=== PATIENT | female | born 1950 | race Caucasian/White ===

== ENCOUNTER 2016-11-30 09:31 | Day surgery (SDC) | payer MEDICARE, OTHER ==
[~2016-11-30 09:31] MED LIST: Bupivacaine 0.25%/EPINEPHrine 1:200,000 10 ML SDV ONE; Dexamethasone/Tobramycin 0.1-0.3% Ophth Oint 3.5 GM Tube ONE; Lactated Ringers 1,000 ML IV SCH
[2016-11-30] MEDS ORDERED: Bupivacaine 0.25%/EPINEPHrine 1:200,000 10 ML SDV INJECT ONE (10:00)
[2016-11-30] MEDS ORDERED: ceFAZolin 2 GM in Premix Bag 1 BAG IV ONE (10:00)
[2016-11-30] MEDS ORDERED: Acetaminophen/HYDROcodone 325-5 MG Tab PO PRN (10:00)
--- NOTE | 2016-11-30 10:33 | PCM.PREANE ---
Preanesthetic Assessment - Anesthesia/Transfusion/Family Hx Anesthesia History: Prior Anesthesia Without Reaction Family History of Anesthesia Reaction: No Transfusion History: No Prior Transfusion(s) - Review of Systems General: No Symptoms Pulmonary: No Symptoms Cardiovascular: No Symptoms Gastrointestinal: No symptoms Neurological: No Symptoms Other: Reports: None - Physical Assessment NPO Status Date: 11/29/16 O2 Sat by Pulse Oximetry: 97 Respiratory Rate: 16 Vital Signs: Last Vital Signs Temp Pulse 60 11/30/16 10:10 Resp 16 11/30/16 10:10 BP 126/60 11/30/16 10:10 Pulse Ox 97 11/30/16 10:10 Height: 1.65 m Weight: 75.296 kg ASA Class: 2 Mental Status: Alert & Oriented x3 Airway Class: Mallampati = 1 Dentition: Reports: Normal Dentition ROM/Head Extension: Full Lungs: Clear to auscultation, Normal respiratory effort Cardiovascular: Regular Rate, Regular Rhythm - Allergies Allergies/Adverse Reactions: Allergies Allergy/AdvReac Type Severity Reaction Status Date / Time No Known Allergies Allergy Verified 11/27/16 08:22 - Acknowledgements Anesthesia Type Planned: MAC Pt an Appropriate Candidate for the Planned Anesthesia: Yes Alternatives and Risks of Anesthesia Discussed w Pt/Guardian: Yes Pt/Guardian Understands and Agrees with Anesthesia Plan: Yes PreAnesthesia Questionnaire HEENT History: Reports: Retinal Detachment Other HEENT History: hx laser for detached retina, wears glasses Cardiovascular History: Reports: High Cholesterol Gastrointestinal History: Reports: None - Past Surgical History Head Surgeries/Procedures: Reports: None GI Surgical History: Reports: Colonoscopy - SUBSTANCE USE Smoking Status *Q: Former Smoker Tobacco Use Within Last Twelve Months: No Recreational Drug Use History: No - HOME MEDS Home Medications: Home Meds Fish Oil/[place]-3 Fatty Acids [Fish Oil 1,000 MG] 1 tab PO DAILY 11/27/16 [ History] Simvastatin [Zocor] 40 mg PO DAILY 11/27/16 [History] Venlafaxine HCl [Venlafaxine HCl ER] 150 mg PO DAILY 11/27/16 [History] cycloSPORINE [Restasis] 1 drop EYEBOTH ASDIRECTED 11/27/16 [History] - CURRENT (IN HOUSE) MEDS Current Meds: Current Medications Hydrocodone Bitart/Acetaminophen ([place] 325-5 Mg) 1 tab PO Q4H PRN PRN Reason: Pain Lactated Ringer's (Ringers, Lactated) 1,000 mls @ 125 mls/hr IV ASDIRECTED MIRELA Last Admin: 11/30/16 10:31 Dose: 125 mls/hr Tobramycin/Dexamethasone (Tobradex Ophth Oint) 1 gm EYEBOTH ONETIME ONE Stop: 11/30/16 11:01 Discontinued Medications Bupivacaine HCl/Epinephrine Bitart ([place] 0.25%/Epinephrine 1:200,000) 10 ml INJECT ONETIME ONE Stop: 11/30/16 10:01 Bupivacaine HCl/Epinephrine Bitart ([place] 0.25%/Epinephrine 1:200,000) Confirm Administered Dose 10 ml .ROUTE .STK-MED ONE Stop: 11/30/16 09:27 Cefazolin Sodium/Dextrose 2 gm (/ Premix) 50 mls @ 100 mls/hr IV ONETIME ONE Stop: 11/30/16 10:29 Tobramycin/Dexamethasone (Tobradex Ophth Oint) Confirm Administered Dose 3.5 gm .ROUTE .STK-MED ONE Stop: 11/30/16 09:27
[2016-11-30] MEDS ORDERED: Dexamethasone/Tobramycin 0.1-0.3% Ophth Oint 3.5 GM Tube EYEBOTH ONE (11:00)
[2016-11-30] MEDS ORDERED: Propofol 200 MG/20 ML SDV ONE (12:46)
[2016-11-30] MEDS ORDERED: Lidocaine 2% 5 ML SDV ONE (12:46)
[2016-11-30] MEDS ORDERED: fentaNYL 100 MCG/2 ML SDV ONE (12:46)
[2016-11-30] MEDS ORDERED: Midazolam 1 MG/ML 2 ML SDV ONE (12:46)
[2016-11-30] MEDS ORDERED: Ondansetron 4 MG/2 ML SDV ONE (12:47)
[2016-11-30] MEDS ORDERED: Lidocaine 1% with EPINEPHrine 1:100,000 20 ML MDV ONE (13:35)
[2016-11-30] MEDS ORDERED: Bupivacaine 0.25%/EPINEPHrine 1:200,000 10 ML SDV ONE (13:35)
--- NOTE | 2016-11-30 14:25 | PCM.POSTAN ---
POST ANESTHESIA ASSESSMENT - MENTAL STATUS Mental Status: alert, oriented - RESPIRATORY Respiratory Status: respiratory rate WNL, airway patent, O2 saturation stable - CARDIOVASCULAR CV Status: pulse rate WNL, blood pressure stable - GASTROINTESTINAL GI Status: no symptoms - POST OP HYDRATION Hydration Status: adequate & stable
--- NOTE | 2016-11-30 15:27 | PCM48HPAN ---
Post Anesthesia Note - EVALUATION WITHIN 48HRS OF ANESTHETIC Vital Signs in Normal Range: Yes Patient Participated in Evaluation: Yes Respiratory Function Stable: Yes Airway Patent: Yes Cardiovascular Function Stable: Yes Hydration Status Stable: Yes Pain Control Satisfactory: Yes Nausea and Vomiting Control Satisfactory: Yes Mental Status Recovered: Yes
[2016-11-30 16:26] VITALS: BP 123/56
--- NOTE | 2016-12-01 10:37 | PCM.OPNOTE ---
- General Post-Op/Procedure Note Date of Surgery/Procedure: 11/30/16 Operative Procedure(s): bilatearl upper lid blepharoplasty for excess skin weighing down lids Pre Op Diagnosis: dermatochalasis with visual obstruction Post-Op Diagnosis: Same Anesthesia Technique: Local, MAC Primary Surgeon: Shannon Martinez Corporate Secretary: Jewell Wharton Complications: None Condition: Good
--- NOTE | 2016-12-01 11:11 | OR ---
SURGEON: JAMIE ODELL MD DATE OF PROCEDURE: 11/30/2016 PREOPERATIVE DIAGNOSIS: Dermatochalasis with visual obstruction. POSTOPERATIVE DIAGNOSIS: Dermatochalasis with visual obstruction. PROCEDURE: Bilateral upper lid blepharoplasty for excess skin weighing down lids. CLINICAL PHARMACY COORDINATOR: DALIA Vieira INDICATIONS: Ms. Escudero is a 65-year-old female with visual field exams demonstrating visual obstruction and an MRD of less than 2 bilaterally. Risks and benefits of upper lid blepharoplasty were discussed with her and she was in agreement to proceed. Risks were including, but not limited to, bleeding, infection, damage to underlying or overlying structures, possible need for future interventions and possible scarring. PROCEDURE IN DETAIL: After informed consent was obtained and placed on the chart, the patient was brought to the operating theater and laid in supine position. After adequate local MAC anesthetic was obtained, the area was prepped and draped in normal fashion and a time-out was completed to confirm side and site. The area was prepped and local anesthesia was infiltrated. The area had been marked for excess skin with pinch test and measurements prior to injection. The previously marked area for excision was incised using a 15 blade and dissection was carried down just superior to the muscle layer. The skin was removed using a 15 blade and Bovie electrocautery for meticulous hemostasis. She was quite swollen that the skin was easily closed without tension. Gentle closure of the eye was noted without any exposure of the underlying eyeball in gentle rest. The skin was then closed with 4-0 Monocryl stitches for first deep dermal and a running 6-0 Prolene for the skin. The ends of the 6-0 Prolene were Steri-Strips in place. The incision line was dressed with TobraDex ointment. She tolerated this well and all counts and needles were correct at the end of the case. FOLLOWUP INSTRUCTIONS: The patient will see us in one week for suture removal or sooner if any problems, questions, or concerns. HEGGTDANIEL / PHYLLIS /[id number]
== END 2016-11-30 16:00 | disposition home or self-care (01) ==
LOC: MW.SDS 09:31
PROVIDERS: ATTEND Plastic Surgery
PROC: 080PXZZ Alteration of Left Upper Eyelid, External Approach (ICD-10-PCS; principal; 2016-11-30)
PROC: 080NXZZ Alteration of Right Upper Eyelid, External Approach (ICD-10-PCS; 2016-11-30)
DX: H02.831 Dermatochalasis of right upper eyelid (principal); H02.834 Dermatochalasis of left upper eyelid; E78.00 Pure hypercholesterolemia, unspecified; Z87.891 Personal history of nicotine dependence; Z98.890 Other specified postprocedural states; Z79.899 Other long term (current) drug therapy
CPT/HCPCS: 15823; A9270; J2250; J2405; J3010; J7120; 00103; J2704

== ENCOUNTER 2017-03-14 09:01 | Emergency (ER) | payer MEDICARE, OTHER ==
--- NOTE | 2017-03-14 09:20 | EDM.PDOC ---
ED HPI GENERAL MEDICAL PROBLEM - General Chief Complaint: Lower Extremity Injury/Pain Stated Complaint: RIGHT KNEE PAIN FROM FALL Time Seen by Provider: 03/14/17 09:20 Source of Information: Reports: Patient - History of Present Illness INITIAL COMMENTS - FREE TEXT/NARRATIVE: HISTORY AND PHYSICAL: History of present illness: []Patient presents with right knee pain that began last night, it is painful with weightbearing, she slipped twisting her knee since she has been having pain with weightbearing at rest there is no pain 0 out of 10 with weightbearing she rates 5 out of 10 nonradiating denies any other injury head injury or loss of consciousness No fever nausea vomiting chills sweats no chest pain shortness breath headache dizziness palpitation about a urine symptoms Review of systems: As per history of present illness and below otherwise all systems reviewed and negative. Past medical history: As per history of present illness and as reviewed below otherwise noncontributory. Surgical history: As per history of present illness and as reviewed below otherwise noncontributory. Social history: No reported history of drug or alcohol abuse. Family history: As per history of present illness and as reviewed below otherwise noncontributory. Physical exam: HEENT: Atraumatic, normocephalic, pupils reactive, negative for conjunctival pallor or scleral icterus, mucous membranes moist, throat clear, neck supple, nontender, trachea midline. Lungs: Clear to auscultation, breath sounds equal bilaterally, chest nontender. Heart: S1S2, regular, negative for clicks, rubs, or JVD. Abdomen: Soft, nondistended, nontender. Negative for masses or hepatosplenomegaly. Negative for costovertebral tenderness. Pelvis: Stable nontender. Genitourinary: Deferred. Rectal: Deferred. Extremities: Atraumatic, negative for cords or calf pain. Neurovascular unremarkable. Neuro: Awake, alert, oriented. Cranial nerves II through XII unremarkable. Cerebellum unremarkable. Motor and sensory unremarkable throughout. Exam nonfocal. Right knee hip and ankle and affected knee is slightly swollen there is medial joint line tenderness tendon and ligament structures appear intact however is somewhat limited exam due to pain entire limb is neurovascularly intact Diagnostics: []Right knee 3 views Therapeutics: []Immobilizer crutches nonweightbearing Rest ice ibuprofen Follow-up with orthopedist Impression: []Right knee pain Slight joint effusion on x-ray Definitive disposition and diagnosis as appropriate pending reevaluation and review of above. Right Knee Pain Score (Numeric/FACES): 3 - Related Data Allergies Allergy/AdvReac Type Severity Reaction Status Date / Time No Known Allergies Allergy Verified 03/14/17 09:16 Home Meds: Home Meds Fish Oil/[place]-3 Fatty Acids [Fish Oil 1,000 MG] 1 tab PO DAILY 11/27/16 [ History] Simvastatin [Zocor] 40 mg PO DAILY 11/27/16 [History] Venlafaxine HCl [Venlafaxine HCl ER] 150 mg PO DAILY 11/27/16 [History] cycloSPORINE [Restasis] 1 drop EYEBOTH ASDIRECTED 11/27/16 [History] Acetaminophen/HYDROcodone [[place] 325-5 MG] 1 tab PO Q4H PRN #30 tablet 11/30/16 [Rx] Past Medical History HEENT History: Reports: Retinal Detachment Other HEENT History: hx laser for detached retina, wears glasses Cardiovascular History: Reports: High Cholesterol Gastrointestinal History: Reports: None - Past Surgical History Head Surgeries/Procedures: Reports: None GI Surgical History: Reports: Colonoscopy Social & Family History - Tobacco Use Smoking Status *Q: Former Smoker Month Tobacco Last Used: quit smoking 30 yrs ago - Recreational Drug Use Recreational Drug Use: No Review of Systems - Review of Systems Review Of Systems: ROS reveals no pertinent complaints other than HPI. ED EXAM, GENERAL - Physical Exam Exam: See Below Course - Vital Signs Last Recorded V/S: Last Vital Signs Temp 36.8 C 03/14/17 09:17 Pulse 97 03/14/17 09:17 Resp 18 03/14/17 09:17 BP 123/87 03/14/17 09:17 Pulse Ox 97 03/14/17 09:17 Departure - Departure Time of Disposition: 10:26 Disposition: Home, Self-Care 01 Condition: Good Clinical Impression: Right knee pain - Discharge Information Referrals: Italia Walsh NP [Primary Care Provider] - Forms: ED Department Discharge Additional Instructions: Rest Ice 20 minute intervals 3 times daily as needed Ibuprofen 400 mg 3 times daily 7-10 days Immobilizer crutches nonweightbearing Call orthopedist to schedule appropriate follow-up with number below [facility] Professional Building [address] [place] [address], [address] [place] [phone] my orthopedic The following information is given to patients seen in the emergency department who are being discharged to home. This information is to outline your options for follow-up care. We provide all patients seen in our emergency department with a follow-up referral. The need for follow-up, as well as the timing and circumstances, are variable depending upon the specifics of your emergency department visit. If you don't have a primary care physician on staff, we will provide you with a referral. We always advise you to contact your personal physician following an emergency department visit to inform them of the circumstance of the visit and for follow-up with them and/or the need for any referrals to a consulting specialist. The emergency department will also refer you to a specialist when appropriate. This referral assures that you have the opportunity for follow-up care with a specialist. All of these measure are taken in an effort to provide you with optimal care, which includes your follow-up. Under all circumstances we always encourage you to contact your private physician who remains a resource for coordinating your care. When calling for follow-up care, please make the office aware that this follow-up is from your recent emergency room visit. If for any reason you are refused follow-up, please contact the [facility] emergency department at and asked to speak to the emergency department charge nurse.
--- NOTE | 2017-03-14 10:06 | CR ---
EXAMINATION: Right knee HISTORY: Pain COMPARISON: 11/28/2012 TECHNIQUE: 3 views FINDINGS: There is no acute osseous abnormality, dislocation, or fracture. There is moderate joint sp brandy narrowing within the medial compartment. Moderate osteophyte formation is noted at all 3 compartm ents. There is a trace suprapatellar joint effusion. IMPRESSION: 1. Degenerative changes and a trace joint effusion without an acute osseous abnormality.
[2017-03-14 11:08] VITALS: BP 136/63
== END 2017-03-14 11:00 | disposition home or self-care (01) ==
LOC: MW.ED 09:01
DX: M25.561 Pain in right knee (principal); E78.00 Pure hypercholesterolemia, unspecified; Z79.899 Other long term (current) drug therapy; Z87.891 Personal history of nicotine dependence
CPT/HCPCS: 73562-26-RT; 73562-RT; 99282; 99283

== ENCOUNTER 2017-09-25 06:20 | Day surgery (SDC) | payer MEDICARE, OTHER ==
[~2017-09-25 06:20] MED LIST changes: -Bupivacaine 0.25%/EPINEPHrine 1:200,000 10 ML SDV ONE; -Dexamethasone/Tobramycin 0.1-0.3% Ophth Oint 3.5 GM Tube ONE
[2017-09-25] MEDS ORDERED: fentaNYL 100 MCG/2 ML SDV ONE (07:08)
[2017-09-25] MEDS ORDERED: Propofol 200 MG/20 ML SDV ONE (07:08)
[2017-09-25] MEDS ORDERED: Midazolam 1 MG/ML 2 ML SDV ONE (07:08)
[2017-09-25] MEDS ORDERED: Ondansetron 4 MG/2 ML SDV ONE (07:10)
[2017-09-25] MEDS ORDERED: Glycopyrrolate 0.2 MG/ML SDV ONE ×2 (07:10→10:15)
[2017-09-25] MEDS ORDERED: Ketorolac 30 MG/ML SDV ONE (07:10)
--- NOTE | 2017-09-25 07:15 | PCM.PREANE ---
Preanesthetic Assessment - Anesthesia/Transfusion/Family Hx Anesthesia History: Prior Anesthesia Without Reaction Family History of Anesthesia Reaction: No Transfusion History: No Prior Transfusion(s) - Review of Systems General: No Symptoms Pulmonary: No Symptoms Cardiovascular: No Symptoms Gastrointestinal: No Symptoms Neurological: No Symptoms Other: Reports: None - Physical Assessment NPO Status Date: 09/24/17 NPO Status Time: 20:00 O2 Sat by Pulse Oximetry: 96 Respiratory Rate: 16 Vital Signs: Last Vital Signs Temp 37.2 C 09/25/17 06:40 Pulse 67 09/25/17 06:40 Resp 16 09/25/17 06:40 BP 122/59 L 09/25/17 06:40 Pulse Ox 96 09/25/17 06:40 Height: 1.73 m Weight: 74.843 kg ASA Class: 2 Mental Status: Alert & Oriented x3 Airway Class: Mallampati = 2 Dentition: Reports: Normal Dentition ROM/Head Extension: Full Lungs: Clear to Auscultation, Normal Respiratory Effort Cardiovascular: Regular Rate, Regular Rhythm - Allergies Allergies/Adverse Reactions: Allergies Allergy/AdvReac Type Severity Reaction Status Date / Time nickel Allergy Rash Verified 09/23/17 09:48 - Acknowledgements Anesthesia Type Planned: General Anesthesia Pt an Appropriate Candidate for the Planned Anesthesia: Yes Alternatives and Risks of Anesthesia Discussed w Pt/Guardian: Yes Pt/Guardian Understands and Agrees with Anesthesia Plan: Yes Additional Comments: consent obtained for ISB PreAnesthesia Questionnaire HEENT History: Reports: Retinal Detachment Other HEENT History: hx laser for detached retina, wears glasses Cardiovascular History: Reports: High Cholesterol Respiratory History: Reports: None Gastrointestinal History: Reports: None Genitourinary History: Reports: None [employer] History: Reports: None Musculoskeletal History: Reports: None Neurological History: Reports: None Psychiatric History: Reports: None Endocrine/Metabolic History: Reports: None Hematologic History: Reports: None Immunologic History: Reports: None Oncologic (Cancer) History: Reports: Basal Cell Carcinoma Dermatologic History: Reports: None - Infectious Disease History Infectious Disease History: Reports: Chicken Pox, Measles - Past Surgical History Head Surgeries/Procedures: Reports: None HEENT Surgical History: Reports: Tonsillectomy Respiratory Surgical History: Reports: None GI Surgical History: Reports: Colonoscopy Female Surgical History: Reports: None Endocrine Surgical History: Reports: None Neurological Surgical History: Reports: None Musculoskeletal Surgical History: Reports: None Oncologic Surgical History: Reports: None Dermatological Surgical History: Reports: Skin Biopsy - SUBSTANCE USE Smoking Status *Q: Former Smoker Tobacco Use Within Last Twelve Months: No Recreational Drug Use History: No - HOME MEDS Home Medications: Home Meds Simvastatin [Zocor] 40 mg PO DAILY 11/27/16 [History] Venlafaxine HCl [Venlafaxine HCl ER] 150 mg PO DAILY 11/27/16 [History] cycloSPORINE [Restasis] 1 drop EYEBOTH ASDIRECTED 11/27/16 [History] Cranberry 1 tab PO ASDIRECTED 09/23/17 [History] Multivitamin [Multivitamins] 1 tab PO DAILY 09/23/17 [History] Turmeric Root Extract [Turmeric] 1 tab PO ASDIRECTED 09/23/17 [History] - CURRENT (IN HOUSE) MEDS Current Meds: Current Medications Hydrocodone Bitart/Acetaminophen ([place] 325-10 Mg) 1 - 2 tab PO Q4H PRN PRN Reason: Pain Cefazolin Sodium/Dextrose 2 gm (/ Premix) 50 mls @ 100 mls/hr IV ONCALL MIRELA Lactated Ringer's (Ringers, Lactated) 1,000 mls @ 100 mls/hr IV ASDIRECTED [facility] Ketorolac Tromethamine (Toradol) 10 mg PO Q6H PRN PRN Reason: Pain Stop: 09/30/17 08:01
[2017-09-25] MEDS ORDERED: Ropivacaine 0.5% 5 MG/ML 30 ML SDV ONE (07:25)
[2017-09-25] MEDS ORDERED: Bupivacaine 0.5% 30 ML SDV ONE (07:30)
[2017-09-25] MEDS ORDERED: Dexamethasone 4 MG/ML 5 ML MDV ONE (07:43)
[2017-09-25] MEDS ORDERED: ceFAZolin 2 GM in Premix Bag 1 BAG IV SCH (08:00)
[2017-09-25] MEDS ORDERED: Ketorolac 10 MG Tab PO PRN (08:00)
[2017-09-25] MEDS ORDERED: Acetaminophen/HYDROcodone 325-10 MG Tab PO PRN (08:00)
[2017-09-25] MEDS ORDERED: Sugammadex Sodium 200 MG/2 ML VIAL ONE (08:38)
[2017-09-25] MEDS ORDERED: Rocuronium 10 MG/ML 10 ML Syringe ONE (08:40)
[2017-09-25] MEDS ORDERED: Phenylephrine/Normal Saline 100 MCG/ML 10 ML Syringe ONE ×2 (09:18→10:13)
--- NOTE | 2017-09-25 09:38 | PCM.PRNOTE ---
- Free Text/Narrative Note: Anes Note L ISB for Post Op Pain Management Risks and methods were discussed with this patient. Steril technique. Chloroprop prep which was allowed to dry for 3 minutes. L IS groove identified. LOcal 1 cc 15 lido Needle" 22 X 2 Stimuplex A needle. Slowly advanced using nerve stimulator. Excellent biceps twich noted, which was present down to 0.6 mA. Neg aspiration of blood. 8 mg decadon and 30 cc 0.5% bupivicaine slowly injected. Excellent analgesia noted after injection. Sedation was 2 mg versed, and 100 mcg fentanyl. EKG and pulse ox and ekg monitors used for this procedure. Patient tolerated procedure very well. Time with patient: [id number] Bashir Aguilar CRNA
[2017-09-25] MEDS ORDERED: EPINEPHrine 1 MG/ML SDV ONE (09:48)
[2017-09-25] MEDS ORDERED: fentaNYL 100 MCG/2 ML SDV IVPUSH PRN (10:50)
[2017-09-25] MEDS ORDERED: Ondansetron 4 MG/2 ML SDV IVPUSH ONE (10:50)
--- NOTE | 2017-09-25 10:57 | PCM.OPNOTE ---
- General Post-Op/Procedure Note Date of Surgery/Procedure: 09/25/17 Operative Procedure(s): L shoulder arthroscopy with SAD, extensive debridement, and RTCR Post-Op Diagnosis: Left shoulder impingement, biceps tendonitis, and RTCT Anesthesia Technique: General ET Tube, Regional Block Primary Surgeon: Magdaelne Chavarria Roof Slater: Lazara Edwards Condition: Good Free Text/Narrative:: #[id number]
--- NOTE | 2017-09-25 11:24 | PCM.POSTAN ---
POST ANESTHESIA ASSESSMENT - MENTAL STATUS Mental Status: Alert, Oriented - RESPIRATORY Respiratory Status: Respiratory Rate WNL, Airway Patent, O2 Saturation Stable - CARDIOVASCULAR CV Status: Pulse Rate WNL, Blood Pressure Stable - GASTROINTESTINAL GI Status: No Symptoms - POST OP HYDRATION Hydration Status: Adequate & Stable
[2017-09-25 13:09] VITALS: BP 137/65
--- NOTE | 2017-09-25 17:03 | OR ---
SURGEON: Magdalene Chavarria MD DATE OF PROCEDURE: 09/25/2017 PREOPERATIVE DIAGNOSES: 1. Left shoulder impingement syndrome. 2. Left shoulder biceps tendinopathy. 3. Left shoulder partial rotator cuff tear. POSTOPERATIVE DIAGNOSES: 1. Left shoulder impingement syndrome. 2. Left shoulder biceps tendinopathy. 3. Left shoulder partial rotator cuff tear. 4. Degenerative anterior labral tear. PROCEDURES: Left shoulder arthroscopy with: 1. Subacromial decompression with release of coracoacromial ligament and acromioplasty. 2. Extensive debridement including biceps tenotomy and debridement of the anterior labrum. 3. Arthroscopic rotator cuff repair. AED TRAINER: Lazara Edwards PA-C ANESTHESIA: General with interscalene block. ESTIMATED BLOOD LOSS: 10 mL. TOURNIQUET TIME: Zero minutes. COMPLICATIONS: None. DVT PROPHYLAXIS: PAS boot to bilateral lower extremities. IMPLANTS USED: One 2.9 mm JuggerKnot anchor and one 4.5 mm Quattro Link lateral row. BRIEF HISTORY: Evelyn is a 66-year-old female who has had complaint of progressive left shoulder pain. She had failed conservative treatment. Due to her lack of response to conservative treatment, I did recommend surgical intervention. The risks and goals of procedure were discussed with the patient and were documented preoperatively. She agreed to proceed. DESCRIPTION OF PROCEDURE: The patient was properly identified and brought to the operating room. She was transferred from the OR cart and placed on the operating table in supine position. General anesthesia was administered. After adequate anesthesia was obtained, the patient was placed into a beach-chair type position. Care was made to pad all bony prominences. Her head was secured. An interscalene block had been administered preoperatively. The left upper extremity was then prepped in standard fashion using ChloraPrep solution. It was then sterilely draped. A time-out was performed to ensure correct site and procedure. Preoperative antibiotics were given. The surgical site was not signed, but had been given an interscalene block and discussed with the patient preoperatively. The left upper extremity was then sterilely draped. A marking pen was used to identify the bony landmarks. Approximately 30 mL of normal saline were introduced into the glenohumeral joint. A posterior portal was established. Blunt trocar and cannula were introduced into the glenohumeral joint. Camera, inflow, and outflow were assembled. The rotator interval showed no significant synovitis. An anterior portal was established. The subscapularis was visualized. There was a small superficial fraying of the subscapularis near its insertion onto the humeral head. This was inspected and found that the majority of this was intact. I then inspected the subscapular recess. No loose bodies were identified. The biceps was then inspected. She had significant amount of synovitis present on the biceps tendon. Its insertion onto the glenoid also showed some peel back. The biceps was brought into the joint and there was further synovitis along the distal portion of the tendon including some small longitudinal fissures. I elected to proceed with a biceps tenotomy. This was performed with electrocautery. The biceps tendon retracted easily into the biceps tendon sheath. Electrocautery was used to smooth its insertion point onto the glenoid. I then inspected the anterior labrum. She did have some degenerative fraying of this. This was resected with electrocautery to a stable remnant. The posterior labrum appeared intact. Both the glenoid and the humeral head were inspected and no significant degenerative changes were noted. The axillary pouch showed no loose bodies. The arm was then brought into an abducted and externally rotated position. The bare area was noted posteriorly. As I progressed forward, there was a nearly full-thickness tear of the anterior portion of the supraspinatus. Only a few small remaining fibers held the tendon in place. The arm was then brought back into a neutral position. Instruments were removed from the glenohumeral joint. I then entered the subacromial space. A lateral portal was established. A shaver was introduced. She did have extensive bursitis present in the subacromial space. This was resected with a combination of the shaver and electrocautery. The undersurface of the acromion was cleared of soft tissue and the coracoacromial ligament was released anteriorly. She had a type 2 acromion noted which did cause some impingement along the anterior portion. A 5.0 mm bur was used to perform an acromioplasty, which provided good decompression of the subacromial space. The remainder of the bursal tissue was resected. This allowed good visualization of the rotator cuff. The majority appeared to be intact. The anterior portion of the supraspinatus was probed. This was quite thin in the region of the previously noted nearly full-thickness tear from the articular side. Electrocautery was used to take down this portion of the cuff. The footprint was then roughened using the bur. A cuff grasper was used to reapproximate the cuff tear to the footprint and she had good mobility and integrity of the cuff tissue. A 2.9 mm JuggerKnot suture anchor was placed centrally in the defect, just lateral to the articular margin. Four sutures were then passed through the cuff tissue. These were tied in a [id number] fashion. This provided good reapproximation of the cuff tissue to the footprint. An additional lateral row was placed incorporating all of the sutures to provide additional compression of the rotator cuff to the footprint. The repair was then probed at the completion. The repair was found to be nearly watertight. It should be noted that a passport cannula was used to assist with suture management through the lateral portal. The instruments were then removed from the shoulder. A 3-0 nylon was used to close the portal sites. Xeroform gauze was placed over the wound and a bulky dressing was applied. She was awakened from her anesthetic and transferred back to the operating room cart. She was placed into a shoulder immobilizer. She was brought to recovery room in stable condition. All needle and sponge counts were correct. ESHA / PHYLLIS /[id number]
== END 2017-09-25 13:00 | disposition home or self-care (01) ==
LOC: MW.SDS 06:20
PROVIDERS: ATTEND Orthopaedic Surgery
DX: M75.102 Unspecified rotator cuff tear or rupture of left shoulder, not specified as traumatic (principal); M75.42 Impingement syndrome of left shoulder; M67.922 Unspecified disorder of synovium and tendon, left upper arm; Z79.899 Other long term (current) drug therapy; Z91.09 Other allergy status, other than to drugs and biological substances
CPT/HCPCS: 29823; 29826; 29827; 88304; J0171; J1100; J1885; J2250; J2405; J2795; J3010; J7120; 01630; 64415; C1713; J2704

== ENCOUNTER 2019-01-05 08:20 | Inpatient (IN) | payer MEDICARE, OTHER ==
[~2019-01-05 08:20] MED LIST changes: +Acetaminophen 1,000 MG in Premix Bag 1 BAG IV SCH; +Famotidine 20 MG/2 ML SDV IVPUSH SCH; +Ketorolac 15 MG/ML SDV IVPUSH SCH; -Lactated Ringers 1,000 ML IV SCH; +Ropivacaine 49.25 ML, Ketorolac 30 MG, EPINEPHrine 0.5 MG, cloNIDine 80 MCG in Sodium C... INJECT SCH; +Scopolamine 1.5 MG Transdermal Patch TRDERM SCH; +Tranexamic Acid 2,000 MG in Sodium Chloride 0.9% 100 ML IV ONE; +ceFAZolin 1 GM in Premix Bag 1 BAG IV SCH
[2019-01-05] MEDS ORDERED: Propofol 200 MG/20 ML SDV ONE (10:35)
[2019-01-05] MEDS ORDERED: Lidocaine 2% 5 ML SDV ONE (10:35)
[2019-01-05] MEDS ORDERED: fentaNYL 100 MCG/2 ML SDV ONE (10:36)
[2019-01-05] MEDS ORDERED: Midazolam 1 MG/ML 2 ML SDV ONE (10:36)
[2019-01-05] MEDS: Lactated Ringers 1,000 ML IV SCH (10:39)
--- NOTE | 2019-01-05 11:05 | PCM.PREANE ---
Preanesthetic Assessment - Anesthesia/Transfusion/Family Hx Anesthesia History: Prior Anesthesia Without Reaction Other Type of Anesthesia Reaction Comment: "I am a lightweight, I dont need much" Family History of Anesthesia Reaction: No Transfusion History: No Prior Transfusion(s) Intubation History: Unknown - Review of Systems General: No Symptoms Pulmonary: No Symptoms Cardiovascular: No Symptoms Gastrointestinal: No Symptoms Neurological: No Symptoms Other: Reports: None - Physical Assessment Height: 5 ft 8.5 in Weight: 74.843 kg ASA Class: 2 Mental Status: Alert & Oriented x3 Airway Class: Mallampati = 2 Dentition: Reports: Normal Dentition Thyro-Mental Finger Breadths: 2 Mouth Opening Finger Breadths: 2 ROM/Head Extension: Full Lungs: Clear to Auscultation, Normal Respiratory Effort Cardiovascular: Regular Rate, Regular Rhythm - Allergies Allergies/Adverse Reactions: Allergies Allergy/AdvReac Type Severity Reaction Status Date / Time nickel Allergy Rash Verified 01/01/19 07:40 - Blood Blood Available: No - Anesthesia Plan Pre-Op Medication Ordered: None - Acknowledgements Anesthesia Type Planned: Spinal (general anesthesia back-up plan) Pt an Appropriate Candidate for the Planned Anesthesia: Yes Alternatives and Risks of Anesthesia Discussed w Pt/Guardian: Yes Pt/Guardian Understands and Agrees with Anesthesia Plan: Yes PreAnesthesia Questionnaire HEENT History: Reports: Retinal Detachment Other HEENT History: hx laser for detached retina, wears glasses Cardiovascular History: Reports: High Cholesterol Respiratory History: Reports: None Gastrointestinal History: Reports: None Genitourinary History: Reports: None ATTENUATOR History: Reports: None Musculoskeletal History: Reports: None Neurological History: Reports: None Psychiatric History: Reports: Anxiety, Depression Endocrine/Metabolic History: Reports: Other (See Below) Other Endocrine/Metabolic History: pre diabetic Hematologic History: Reports: None Immunologic History: Reports: None Oncologic (Cancer) History: Reports: Basal Cell Carcinoma Dermatologic History: Reports: None - Infectious Disease History Infectious Disease History: Reports: Chicken Pox, Measles - Past Surgical History Head Surgeries/Procedures: Reports: None HEENT Surgical History: Reports: Tonsillectomy Cardiovascular Surgical History: Reports: None Respiratory Surgical History: Reports: None GI Surgical History: Reports: Colonoscopy Female Surgical History: Reports: None Endocrine Surgical History: Reports: None Neurological Surgical History: Reports: None Musculoskeletal Surgical History: Reports: Shoulder Surgery, Other (See Below) Other Musculoskeletal Surgeries/Procedures:: RTC repair (09/25/17) Oncologic Surgical History: Reports: None Dermatological Surgical History: - SUBSTANCE USE Smoking Status *Q: Former Smoker Recreational Drug Use History: No - HOME MEDS Home Medications: Home Meds Simvastatin [Zocor] 40 mg PO BEDTIME 11/27/16 [History] Venlafaxine HCl [Venlafaxine HCl ER] 150 mg PO DAILY 11/27/16 [History] cycloSPORINE [Restasis] 1 drop EYEBOTH BID 11/27/16 [History] Cranberry 1 tab PO ASDIRECTED 09/23/17 [History] Multivitamin [Multivitamins] 1 tab PO DAILY 09/23/17 [History] Turmeric Root Extract [Turmeric] 1 tab PO ASDIRECTED 09/23/17 [History] - CURRENT (IN HOUSE) MEDS Current Meds: Current Medications Famotidine (Pepcid) 40 mg IVPUSH ONARRIVE [facility] Last Admin: 01/05/19 10:39 Dose: 40 mg Acetaminophen 1,000 mg/ Premix 100 mls @ 400 mls/hr IV ONARRIVE [facility] Last Admin: 01/05/19 10:39 Dose: 400 mls/hr Ropivacaine 49.25 ml/Ketorolac Tromethamine 30 mg/Epinephrine HCl 0.5 mg/ Clonidine HCl 80 mcg/ Sodium Chloride 75 mls @ 50 mls/sec INJECT ASDIRECTED [facility] Lactated Ringer's (Ringers, Lactated) 1,000 mls @ 100 mls/hr IV ASDIRECTED [facility] Last Admin: 01/05/19 10:39 Dose: 100 mls/hr Cefazolin Sodium/Dextrose 1 gm (/ Premix) 50 mls @ 100 mls/hr IV ONCALL [facility] Ketorolac Tromethamine (Toradol) 15 mg IVPUSH ONARRIVE [facility] Last Admin: 01/05/19 10:40 Dose: 15 mg Scopolamine (Transderm-Scop) 1.5 mg TRDERM ONARRIVE [facility] Last Admin: 01/05/19 10:41 Dose: 1.5 mg Discontinued Medications Fentanyl (Sublimaze) Confirm Administered Dose 100 mcg .ROUTE .STK-MED ONE Stop: 01/05/19 10:37 Tranexamic Acid 2,000 mg/ (Sodium Chloride) 120 mls @ 600 mls/hr IV ASDIRECTED ONE Stop: 01/05/19 08:11 Lidocaine (Xylocaine-Mpf 2%) Confirm Administered Dose 5 ml .ROUTE .STK-MED ONE Stop: 01/05/19 10:36 Midazolam HCl (Versed 1 Mg/Ml) Confirm Administered Dose 2 mg .ROUTE .STK-MED ONE Stop: 01/05/19 10:37 Propofol (Diprivan 20 Ml) Confirm Administered Dose 400 mg .ROUTE .STK-MED ONE Stop: 01/05/19 10:36
[2019-01-05] MEDS ORDERED: ceFAZolin 1 GM Vial ONE (11:14)
[2019-01-05] MEDS ORDERED: Ondansetron 4 MG/2 ML SDV ONE (12:14)
[2019-01-05] MEDS ORDERED: 50% Dextrose in Water 50 ML Syringe IVPUSH PRN (12:55)
[2019-01-05] MEDS ORDERED: Naloxone 0.4 MG/ML Syringe IVPUSH PRN (12:55)
[2019-01-05] MEDS ORDERED: fentaNYL 100 MCG/2 ML SDV IVPUSH PRN (12:55)
[2019-01-05] MEDS ORDERED: EPINEPHrine 1:10,000 1 MG/10 ML Syringe IVPUSH PRN (12:55)
[2019-01-05] MEDS ORDERED: Atropine 0.1 MG/ML 10 ML Syringe IVPUSH PRN ×2 (12:55)
[2019-01-05] MEDS ORDERED: Bisacodyl 10 MG Supp RECTAL PRN (12:56)
[2019-01-05] MEDS ORDERED: diphenhydrAMINE 25 MG Cap PO PRN (12:56)
[2019-01-05] MEDS ORDERED: Ondansetron 4 MG/2 ML SDV IVPUSH PRN (12:56)
[2019-01-05] MEDS ORDERED: Aluminum Hydroxide/Magnesium Hydroxide/Simethicone Susp 30 ML Cup PO PRN (12:56)
[2019-01-05] MEDS ORDERED: Sodium Chloride 0.9% 2.5 ML Syringe FLUSH PRN (12:56)
[2019-01-05] MEDS ORDERED: Sodium Chloride 0.9% 10 ML Syringe FLUSH PRN (12:56)
[2019-01-05] MEDS ORDERED: Docusate Sodium 100 MG Cap PO PRN (12:56)
--- NOTE | 2019-01-05 13:28 | PCM.OPNOTE ---
- General Post-Op/Procedure Note Date of Surgery/Procedure: 01/05/19 Operative Procedure(s): R TKA Post-Op Diagnosis: DJD R knee Anesthesia Technique: Moderate Sedation, Spinal Primary Surgeon: Magdalene Chavarria Booster Assembler: Lazara Edwards Booster Assembler: Arelis Mccoy EBL in mLs: 50 Condition: Good Free Text/Narrative:: tt=39 min #[id number]
[2019-01-05] MEDS ORDERED: Ketorolac 15 MG/ML SDV IVPUSH SCH (16:30)
--- NOTE | 2019-01-05 17:00 | CR ---
Indication: Surgery postop total knee arthroplasty. Technique: Two views of the right knee were obtained. Comparison: None Findings: Postoperative changes of a right knee arthroplasty identified. Air is identified within the anterior soft tissues. The joint effusion is present. Surgical taty are identified along the anterior skin line. Impression: Postoperative changes of a right knee replacement. Dictated by Hyun Aldana MD @ Jan 05 2019 4:58PM Signed by Dr. Hyun Aldana @ Jan 05 2019 4:59PM
[2019-01-05] MEDS: Acetaminophen 1,000 MG in Premix Bag 1 BAG IV SCH ×2 (17:37→22:56)
[2019-01-05] MEDS: Ketorolac 15 MG/ML SDV IVPUSH SCH (18:45)
[2019-01-05] MEDS: ceFAZolin 1 GM in Premix Bag 1 BAG IV SCH (20:12)
[2019-01-05] MEDS: Cyclosporine 1 DROP EYEBOTH SCH (20:15)
[2019-01-05] MEDS: oxyCODONE 5 MG Tab PO PRN (20:23)
--- NOTE | 2019-01-05 20:26 | OR ---
SURGEON: Magadlene Chavarria MD DATE OF PROCEDURE: 01/05/2019 PREOPERATIVE DIAGNOSIS: Degenerative joint disease, right knee, tricompartmental. POSTOPERATIVE DIAGNOSIS: Degenerative joint disease, right knee, tricompartmental. PROCEDURE: Right total knee arthroplasty using patient specific instrumentation. PRIMARY SURGEON: Magdalene Chavarria MD. ASSISTANTS: Lazara Edwards PA-C and SMITH Melchor. REASON AND ROLE FOR ROOFER GYPSUM: Retraction, prepping, draping, positioning, and closure assistance. ANESTHESIA: Spinal with sedation. ESTIMATED BLOOD LOSS: 50 mL. TOURNIQUET TIME: 39 minutes. COMPLICATIONS: None. DVT PROPHYLAXIS: PAS boot and MAURICE hose to the nonoperative leg. IMPLANTS USED: Cesar Persona femoral component size 8 standard (LPS), tibial component size 5, 10 mm all-polyethylene articular surface, and 32 mm all-polyethylene patella. INTRAOPERATIVE FINDINGS: Showed severe tricompartmental degenerative changes, which were most severe along the medial compartment. 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 Osteophyte formation was also noted. No significant synovitis was found. BRIEF HISTORY: Evelyn is a 68-year-old female who has had complaint of progressive right knee pain. X-ray did confirm degenerative findings. She had failed conservative treatment. Due to her lack of response to conservative treatment, I did recommend surgical intervention. The risks and goals of the procedure were discussed with the patient and were documented preoperatively. She agreed to proceed. DESCRIPTION OF PROCEDURE: The patient was properly identified and brought to the operating room. The patient was then transferred from the operating room cart and placed on the operating table in a supine position. Anesthesia was administered by the anesthesia staff. After adequate anesthesia was obtained, a well-padded tourniquet was applied to the surgical lower extremity. Rowe catheter was placed. The lower extremity was then prepped in standard fashion using ChloraPrep solution. It was then sterilely draped. A time-out was performed to ensure correct site and procedure. Preoperative antibiotics were given along with one gram of tranexamic acid IV. The surgical site had been marked preoperatively. An Esmarch was used to exsanguinate the right lower extremity and the tourniquet was inflated. An incision was made over the anterior aspect of the knee. The subcutaneous tissues were dissected down to the level of the fascia. A medial parapatellar approach to the knee was made. A portion of the infrapatellar fat pad was then excised. The distal femur was then exposed. The femoral patient-specific cutting guide was then placed. Pins were also placed. The distal femoral cutting block was placed and the distal femoral cut was made. Instrumentation was then removed. Both Whitesides' line and the epicondylar axis were then marked with electrocautery. The 4-in-1 cutting block was placed. This was placed in a slightly externally rotated position, which corresponded well with the previously drawn lines. The cutting guide was then pinned into position. An Jair wing guide was used to check the depth of resection of our anterior condylar cut and it was felt that no notching would occur. The anterior condylar cut was then made followed by the posterior condylar cut. Both the posterior chamfer and anterior chamfer cuts were then made. The cutting block was then removed along with the excess bony remnants. We then turned our attention to the tibia. The anterior cruciate ligament and posterior cruciate ligament were released and a posterior cruciate ligament retractor was placed to allow the tibia to be pulled anteriorly. The tibial patient-specific guide was then placed on the proximal tibia. This fit anatomically. The pins were then placed. The proximal tibia cutting guide was then placed and screwed into position. The proximal tibial resection was then made with care being taken to protect the patellar tendon. The bony resection was then removed. The remainder of the medial and lateral meniscus were then excised. Care was taken to protect the popliteus tendon. The tibia was then sized to the appropriate size. The distal femur was then elevated. The posterior capsule was stripped off the distal femur both medially and laterally. The posterior capsule along with the medial and lateral gutters were then injected with a standard mixture consisting of clonidine, epinephrine, Toradol, and Ropivacaine, unless any allergies were found preoperatively. The femoral component was then placed onto the distal femur in a slightly lateral position. This fit the femur well. A box cut was then made without difficulty. This was then removed. The tibial trial along with the polyethylene liner was then placed. The knee came easily into full extension and was stable to varus and valgus stressing both in full extension and flexion. Any additional releases were performed at this time. We then returned our attention to the patella. The patella was everted and towel clamps were used to hold the patella in position. It was resected to a 15 millimeter thickness. It was then sized to the appropriate size. It was prepared in the usual fashion after placing the predetermined size clamps. This was placed in a slightly superior and medial position. The clamp was then removed. The patellar trial button was placed. The knee was taken through a range of motion using the no-touch technique. The patella tracked centrally. A drop catrachito was then placed to check alignment. All instruments were then removed from the knee. The tibial sizer was then placed on the tibia. The tibia was prepared in the usual fashion using the reamer and broach. This was then removed. All bony surfaces were copiously irrigated with Pulsavac solution. They were then suctioned dry. Cement was prepared on the back table in the usual manner. Once it was prepared, the bone ends were again suctioned dry. The tibia was cemented into place first. This was malleted into position. Excess cement was then cleared. The femur was then placed in a similar manner. We placed the polyethylene trial into place and the knee was brought into full extension. An axial load was placed while keeping the knee in full extension. The patella button was also cemented into position and the clamp was used to hold this in place as the cement was allowed to cure. The wound was again copiously irrigated with saline solution using a Pulsavac airport baggage screener. Following this 1 g of tranexamic acid was applied to the wound topically. After we had adequate curing of the cement, the knee was again taken through a range of motion. The size of the polyethylene was then determined. The polyethylene trial was then removed. The tibial tray was suctioned to make sure there was no remaining soft tissue or cement. Excess cement was cleared from around the edges of the prosthesis as well. The tourniquet was then deflated. We were able to observe for any excess bleeding and none was noted. Electrocautery was used to maintain hemostasis. An additional gram of tranexamic acid was given IV. The retractors were again placed and the predetermined polyethylene was then placed. This was locked into position without difficulty. The knee was again taken through a range of motion with no change from the prior exam. The fascial layer was closed with Number One Vicryl. The subcutaneous tissues were closed with 2-0 Vicryl. The skin was closed with taty. Xeroform gauze was placed over the wound and a bulky dressing was applied. The patient was then awakened from anesthesia and transferred back to the operating room cart. They were brought to the recovery room in stable condition. All needle and sponge counts were correct. ESHA FERGUSON /[id number]
[2019-01-06] MEDS: Ketorolac 15 MG/ML SDV IVPUSH SCH (00:56)
[2019-01-06] MEDS: Lactated Ringers 1,000 ML IV SCH (00:58)
[2019-01-06] MEDS: ceFAZolin 1 GM in Premix Bag 1 BAG IV SCH (03:23)
[2019-01-06] MEDS: oxyCODONE 5 MG Tab PO PRN (03:29)
[2019-01-06] MEDS: Acetaminophen 1,000 MG in Premix Bag 1 BAG IV SCH (05:14)
[2019-01-06] MEDS: Polyethylene Glycol 3350 Powder 17 GM Packet PO SCH (08:10)
[2019-01-06] MEDS: Aspirin 325 MG Tab PO SCH ×2 (08:15→20:46)
[2019-01-06] MEDS: Venlafaxine 75 MG Cap.ER PO SCH (08:15)
[2019-01-06] MEDS: Famotidine 20 MG Tab PO SCH (08:15)
[2019-01-06] MEDS: Celecoxib 100 MG Cap PO SCH ×2 (08:15→20:46)
[2019-01-06] MEDS: Acetaminophen/oxyCODONE 325-5 MG Tab PO PRN ×3 (08:16→16:55)
[2019-01-06] MEDS: Cyclosporine 1 DROP EYEBOTH SCH ×2 (08:18→20:48)
[2019-01-06] MEDS: Morphine 2 MG/ML Syringe IVPUSH PRN ×2 (10:27→13:59)
--- NOTE | 2019-01-06 11:32 | PCM.SURGPN ---
<Arelis Mccoy A - Last Filed: 01/06/19 11:27> - General Info Date of Service: 01/06/19 (1000) Date of Surgery/Procedure: 01/05/19 (s/p right TKA) POD#: 1 Post-Op Diagnosis: degenerative joint disease, right knee Admission Diagnosis/Problem: Knee pain Functional Status: Reports: Pain Controlled (Pain was tolerable overnight with oxycodone, but increased this am after increased activity (PT)), Tolerating Diet , Ambulating - Review of Systems General: Reports: No Symptoms, Fever Pulmonary: Reports: No Symptoms. Denies: Shortness of Breath Cardiovascular: Reports: No Symptoms. Denies: Chest Pain Gastrointestinal: Reports: No Symptoms. Denies: Nausea, Vomiting Genitourinary: Reports: Other (gutiérrez catheter removed. Has not voided yet) Musculoskeletal: Reports: Joint Pain (post-op knee pain) Neurological: Reports: No Symptoms. Denies: Confusion Psychiatric: Reports: No Symptoms. Denies: Confusion - Patient Data Vitals - Most Recent: Last Vital Signs Temp 36.4 C 01/06/19 07:49 Pulse 57 L 01/06/19 07:49 Resp 16 01/06/19 07:49 BP 113/57 L 01/06/19 07:49 Pulse Ox 94 L 01/06/19 07:49 Weight - Most Recent: 74.843 kg I&O - Last 24 Hours: Intake & Output 01/05/19 01/06/19 01/06/19 22:59 06:59 14:59 Intake Total 316 1790 1240 Output Total 575 600 200 Balance -259 1190 1040 Lab Results Last 24 Hrs: Laboratory Results - last 24 hr 01/05/19 01/06/19 Range/Units 10:32 05:28 Hgb 12.2 (12.0-16.0) g/dL Hct 38.0 (36.0-46.0) % Blood Type O NEGATIVE Antibody Screen NEGATIVE Med Orders - Current: Current Medications Al Hydroxide/Mg Hydroxide (Mag-Al Plus) 30 ml PO Q4H PRN PRN Reason: Indigestion Aspirin (Aspirin) 325 mg PO BID [facility] Last Admin: 01/06/19 08:15 Dose: 325 mg Bisacodyl (Dulcolax) 10 mg RECTAL DAILY PRN PRN Reason: Constipation Celecoxib (Celebrex) 200 mg PO BID [facility] Last Admin: 01/06/19 08:15 Dose: 200 mg Diphenhydramine HCl (Benadryl) 25 - 50 mg PO Q6H PRN PRN Reason: Itching Docusate Sodium (Colace) 100 mg PO BID PRN PRN Reason: Constipation Last Admin: 01/06/19 08:15 Dose: 100 mg Famotidine (Pepcid) 40 mg PO DAILY [facility] Last Admin: 01/06/19 08:15 Dose: 40 mg Lactated Ringer's (Ringers, Lactated) 1,000 mls @ 100 mls/hr IV ASDIRECTED [facility] Last Admin: 01/06/19 00:58 Dose: 100 mls/hr Morphine Sulfate (Morphine) 1 - 3 mg IVPUSH Q3H PRN PRN Reason: Pain Last Admin: 01/06/19 10:27 Dose: 2 mg Ondansetron HCl (Zofran) 4 mg IVPUSH Q6H PRN PRN Reason: Nausea/Vomiting Oxycodone/Acetaminophen (Percocet 325-5 Mg) 1 - 2 tab PO Q4H PRN PRN Reason: Pain Last Admin: 01/06/19 08:16 Dose: 2 tab Cyclosporine 1 Drop 1 each EYEBOTH BID [facility] Last Admin: 01/06/19 08:18 Dose: 1 each Polyethylene Glycol (Miralax) 17 gm PO DAILY [facility] Last Admin: 01/06/19 08:10 Dose: 17 gm Scopolamine (Transderm-Scop) 1.5 mg TRDERM ONARRIVE [facility] Last Admin: 01/05/19 10:41 Dose: 1.5 mg Sodium Chloride (Saline Flush) 10 ml FLUSH ASDIRECTED PRN PRN Reason: Keep Vein Open Sodium Chloride (Saline Flush) 2.5 ml FLUSH ASDIRECTED PRN PRN Reason: Keep Vein Open Venlafaxine HCl (Effexor Xr) 150 mg PO DAILY [facility] Last Admin: 01/06/19 08:15 Dose: 150 mg Discontinued Medications Atropine Sulfate (Atropine 0.1 Mg/Ml) 0.5 mg IVPUSH ASDIRECTED PRN PRN Reason: Hypo-perfusion Atropine Sulfate (Atropine 0.1 Mg/Ml) 1 mg IVPUSH ASDIRECTED PRN PRN Reason: Hypo-Perfusion Cefazolin Sodium (Ancef) Confirm Administered Dose 2 gm .ROUTE .[facility] ONE Stop: 01/05/19 11:15 Dextrose/Water (Dextrose 50% In Water) 50 ml IVPUSH ASDIRECTED PRN PRN Reason: Hypoglycemia Epinephrine HCl (Epinephrine 1:10,000) 1 mg IVPUSH ASDIRECTED PRN PRN Reason: ACLS Guidelines Famotidine (Pepcid) 40 mg IVPUSH ONARRIVE [facility] Last Admin: 01/05/19 10:39 Dose: 40 mg Fentanyl (Sublimaze) Confirm Administered Dose 100 mcg .ROUTE .[facility] ONE Stop: 01/05/19 10:37 Fentanyl (Sublimaze) 50 - 100 mcg IVPUSH Q5M PRN PRN Reason: Pain Acetaminophen 1,000 mg/ Premix 100 mls @ 400 mls/hr IV ONARRIVE [facility] Last Admin: 01/05/19 10:39 Dose: 400 mls/hr Ropivacaine 49.25 ml/Ketorolac Tromethamine 30 mg/Epinephrine HCl 0.5 mg/ Clonidine HCl 80 mcg/ Sodium Chloride 75 mls @ 50 mls/sec INJECT ASDIRECTED [facility] Tranexamic Acid 2,000 mg/ (Sodium Chloride) 120 mls @ 600 mls/hr IV ASDIRECTED ONE Stop: 01/05/19 08:11 Last Admin: 01/05/19 14:07 Dose: Not Given Cefazolin Sodium/Dextrose 1 gm (/ Premix) 50 mls @ 100 mls/hr IV ONCALL [facility] Acetaminophen 1,000 mg/ Premix 100 mls @ 400 mls/hr IV Q6H [facility] Stop: 01/06/19 05:14 Last Admin: 01/06/19 05:14 Dose: 400 mls/hr Cefazolin Sodium/Dextrose 1 gm (/ Premix) 50 mls @ 100 mls/hr IV Q8H [facility] Stop: 01/06/19 04:29 Last Admin: 01/06/19 03:23 Dose: 100 mls/hr Ketorolac Tromethamine (Toradol) 15 mg IVPUSH ONARRIVE [facility] Last Admin: 01/05/19 10:40 Dose: 15 mg Ketorolac Tromethamine (Toradol) 15 mg IVPUSH Q6H [facility] Stop: 01/06/19 05:00 Last Admin: 01/05/19 13:38 Dose: 15 mg Ketorolac Tromethamine (Toradol) 15 mg IVPUSH Q6H [facility] Stop: 01/06/19 05:00 Last Admin: 01/06/19 00:56 Dose: 15 mg Lidocaine (Xylocaine-Mpf 2%) Confirm Administered Dose 5 ml .ROUTE .[facility] ONE Stop: 01/05/19 10:36 Midazolam HCl (Versed 1 Mg/Ml) Confirm Administered Dose 2 mg .ROUTE .[facility] ONE Stop: 01/05/19 10:37 Naloxone HCl (Narcan) 0.1 mg IVPUSH ASDIRECTED PRN PRN Reason: Respiratory Depression Ondansetron HCl (Zofran) Confirm Administered Dose 4 mg .ROUTE .[facility] ONE Stop: 01/05/19 12:15 Oxycodone HCl (Oxycodone) 5 - 10 mg PO Q4H PRN PRN Reason: Pain Stop: 01/06/19 08:00 Last Admin: 01/06/19 03:29 Dose: 10 mg Propofol (Diprivan 20 Ml) Confirm Administered Dose 400 mg .ROUTE .[facility] ONE Stop: 01/05/19 10:36 Tranexamic Acid (Cyklokapron) Confirm Administered Dose 2,000 mg .ROUTE .[facility]- MED ONE Stop: 01/05/19 11:06 - Exam Wound/Incisions: Dressing Dry and Intact, No Drainage (Surgical dressing removed. Incision CDI with taty. Minimal swelling, but no active drainage. ). No: Erythema Quality Assessment: DVT Prophylaxis (compression stockings bilaterally, SCDs, and ASA (ASA started POD#1)) General: Alert, Oriented, Cooperative, No Acute Distress HEENT: Pupils Equal Lungs: Normal Respiratory Effort Cardiovascular: Regular Rate Extremities: No Pedal Edema, Normal Capillary Refill, Other (AT/EHL/gastroc 5/ 5. Sensation grossly intact to LE. PP2+) Skin: Warm, Dry Psy/Mental Status: Alert, Normal Affect, Normal Mood - Problem List Review Problem List Initiated/Reviewed/Updated: Yes - My Orders Last 24 Hours: Active Orders 24 hr Category Date Time Status Communication Order [RC] PRN Care 01/05/19 12:56 Active Communication Order [RC] PRN Care 01/05/19 12:56 Active Neurovascular Check [RC] Q2HR Care 01/05/19 12:56 Active Notify Provider Vital Signs [RC] ASDIRECTED Care 01/05/19 12:55 Active Oxygen Therapy [RC] PRN Care 01/05/19 12:55 Active RT Incentive Spirometry [RC] Q1HWA Care 01/05/19 12:56 Active Urinary Catheter Removal [RC] ASDIRECTED Care 01/06/19 12:56 Active Vital Signs [RC] Q4H Care 01/05/19 12:56 Active Wound Care [RC] DAILY Care 01/05/19 12:56 Active PT Evaluation and Treatment [CONS] Routine Cons 01/05/19 12:56 Active Regular Diet [DIET] Diet 01/05/19 Dinner Active HEMOGLOBIN/HEMATOCRIT,HH [HEME] DAILY Lab 01/07/19 06:00 Ordered Acetaminophen/oxyCODONE [Percocet 325-5 MG] Med 01/06/19 06:00 Active 1 - 2 tab PO Q4H PRN Alum Hydrox/Mag Hydrox/Simeth [Mag-Al Plus] Med 01/05/19 12:56 Active 30 ml PO Q4H PRN Aspirin Med 01/06/19 09:00 Active 325 mg PO BID Bisacodyl [Dulcolax] Med 01/05/19 12:56 Active 10 mg RECTAL DAILY PRN Celecoxib [CeleBREX] Med 01/06/19 09:00 Active 200 mg PO BID Docusate Sodium [Colace] Med 01/05/19 12:56 Active 100 mg PO BID PRN Famotidine [Pepcid] Med 01/06/19 09:00 Active 40 mg PO DAILY Morphine Med 01/05/19 13:00 Active 1 - 3 mg IVPUSH Q3H PRN Ondansetron [Zofran] Med 01/05/19 12:56 Active 4 mg IVPUSH Q6H PRN Patient's Own Medication [Ptom] Med 01/05/19 21:00 Active 1 each EYEBOTH BID Polyethylene Glycol 3350 [MiraLAX] Med 01/06/19 09:00 Active 17 gm PO DAILY Sodium Chloride 0.9% [Saline Flush] Med 01/05/19 12:56 Active 10 ml FLUSH ASDIRECTED PRN Sodium Chloride 0.9% [Saline Flush] Med 01/05/19 12:56 Active 2.5 ml FLUSH ASDIRECTED PRN Venlafaxine [Effexor XR] Med 01/06/19 09:00 Active 150 mg PO DAILY diphenhydrAMINE [Benadryl] Med 01/05/19 12:56 Active 25 - 50 mg PO Q6H PRN Convert IV to Saline Lock [OM.PC] PRN Oth 01/05/19 13:00 Ordered Convert IV to Saline Lock [OM.PC] PRN Oth 01/06/19 13:00 Ordered Ice Therapy [OM.PC] Routine Ot 01/05/19 12:56 Ordered Medication Orders Al Hydroxide/Mg Hydroxide (Mag-Al Plus) 30 ml PO Q4H PRN PRN Reason: Indigestion Aspirin (Aspirin) 325 mg PO BID [facility] Last Admin: 01/06/19 08:15 Dose: 325 mg Bisacodyl (Dulcolax) 10 mg RECTAL DAILY PRN PRN Reason: Constipation Celecoxib (Celebrex) 200 mg PO BID [facility] Last Admin: 01/06/19 08:15 Dose: 200 mg Diphenhydramine HCl (Benadryl) 25 - 50 mg PO Q6H PRN PRN Reason: Itching Docusate Sodium (Colace) 100 mg PO BID PRN PRN Reason: Constipation Last Admin: 01/06/19 08:15 Dose: 100 mg Famotidine (Pepcid) 40 mg PO DAILY [facility] Last Admin: 01/06/19 08:15 Dose: 40 mg Lactated Ringer's (Ringers, Lactated) 1,000 mls @ 100 mls/hr IV ASDIRECTED [facility] Last Admin: 01/06/19 00:58 Dose: 100 mls/hr Infusion: 01/05/19 20:39 Dose: 100 mls/hr Admin: 01/05/19 10:39 Dose: 100 mls/hr Morphine Sulfate (Morphine) 1 - 3 mg IVPUSH Q3H PRN PRN Reason: Pain Last Admin: 01/06/19 10:27 Dose: 2 mg Ondansetron HCl (Zofran) 4 mg IVPUSH Q6H PRN PRN Reason: Nausea/Vomiting Oxycodone/Acetaminophen (Percocet 325-5 Mg) 1 - 2 tab PO Q4H PRN PRN Reason: Pain Last Admin: 01/06/19 08:16 Dose: 2 tab Cyclosporine 1 Drop 1 each EYEBOTH BID [facility] Last Admin: 01/06/19 08:18 Dose: 1 each Admin: 01/05/19 20:15 Dose: 1 each Polyethylene Glycol (Miralax) 17 gm PO DAILY [facility] Last Admin: 01/06/19 08:10 Dose: 17 gm Scopolamine (Transderm-Scop) 1.5 mg TRDERM ONARRIVE [facility] Last Admin: 01/05/19 10:41 Dose: 1.5 mg Sodium Chloride (Saline Flush) 10 ml FLUSH ASDIRECTED PRN PRN Reason: Keep Vein Open Sodium Chloride (Saline Flush) 2.5 ml FLUSH ASDIRECTED PRN PRN Reason: Keep Vein Open Venlafaxine HCl (Effexor Xr) 150 mg PO DAILY [facility] Last Admin: 01/06/19 08:15 Dose: 150 mg - Assessment Assessment (Free Text/Narrative):: s/p Right TKA - Plan Plan (Free Text/Narrative):: Overall, Evelyn did well overnight with pain management. At the current time, she has increased pain after PT, with dose of IV morphine given to get on top of pain control. Tolerating food/fluids without N/V. Tolerating narcotic Rx without N/V. Surgical dressing removed and AquaCell applied. Ambulating with nursing (up in chair for meals) and PT, with use of walker. Gutiérrez catheter removed this AM, but she has not voided yet. VSS/afebrile. Hg stable at 12.2 Neurovascular exam WNL. At the current time, doesn't feel ready for discharge d/t increased pain. Will be reevaluated later. <Magdalene Chavarria R - Last Filed: 01/07/19 09:47> - Patient Data Vitals - Most Recent: Last Vital Signs Temp 97.3 F 01/07/19 08:00 Pulse 78 01/07/19 08:00 Resp 18 01/07/19 08:00 BP 128/59 L 01/07/19 08:00 Pulse Ox 95 01/07/19 08:00 I&O - Last 24 Hours: Intake & Output 01/06/19 01/07/19 01/07/19 22:59 06:59 14:59 Intake Total 560 700 Output Total 400 900 Balance 160 -200 Lab Results Last 24 Hrs: Laboratory Results - last 24 hr 01/07/19 Range/Units 05:30 Hgb 12.0 (12.0-16.0) g/dL Hct 37.1 (36.0-46.0) % Med Orders - Current: Current Medications Al Hydroxide/Mg Hydroxide (Mag-Al Plus) 30 ml PO Q4H PRN PRN Reason: Indigestion Aspirin (Aspirin) 325 mg PO BID [facility] Last Admin: 01/07/19 08:48 Dose: 325 mg Bisacodyl (Dulcolax) 10 mg RECTAL DAILY PRN PRN Reason: Constipation Celecoxib (Celebrex) 200 mg PO BID [facility] Last Admin: 01/07/19 08:50 Dose: 200 mg Diphenhydramine HCl (Benadryl) 25 - 50 mg PO Q6H PRN PRN Reason: Itching Docusate Sodium (Colace) 100 mg PO BID PRN PRN Reason: Constipation Last Admin: 01/06/19 08:15 Dose: 100 mg Famotidine (Pepcid) 40 mg PO DAILY [facility] Last Admin: 01/07/19 08:50 Dose: 40 mg Lactated Ringer's (Ringers, Lactated) 1,000 mls @ 100 mls/hr IV ASDIRECTED [facility] Last Admin: 01/06/19 00:58 Dose: 100 mls/hr Morphine Sulfate (Morphine) 1 - 3 mg IVPUSH Q3H PRN PRN Reason: Pain Last Admin: 01/06/19 13:59 Dose: 2 mg Ondansetron HCl (Zofran) 4 mg IVPUSH Q6H PRN PRN Reason: Nausea/Vomiting Oxycodone/Acetaminophen (Percocet 325-5 Mg) 1 - 2 tab PO Q4H PRN PRN Reason: Pain Last Admin: 01/07/19 08:48 Dose: 2 tab Cyclosporine 1 Drop 1 each EYEBOTH BID [facility] Last Admin: 01/07/19 08:51 Dose: 1 each Polyethylene Glycol (Miralax) 17 gm PO DAILY [facility] Last Admin: 01/07/19 08:50 Dose: 17 gm Scopolamine (Transderm-Scop) 1.5 mg TRDERM ONARRIVE [facility] Last Admin: 01/05/19 10:41 Dose: 1.5 mg Sodium Chloride (Saline Flush) 10 ml FLUSH ASDIRECTED PRN PRN Reason: Keep Vein Open Sodium Chloride (Saline Flush) 2.5 ml FLUSH ASDIRECTED PRN PRN Reason: Keep Vein Open Venlafaxine HCl (Effexor Xr) 150 mg PO DAILY [facility] Last Admin: 01/07/19 08:50 Dose: 150 mg Discontinued Medications Atropine Sulfate (Atropine 0.1 Mg/Ml) 0.5 mg IVPUSH ASDIRECTED PRN PRN Reason: Hypo-perfusion Atropine Sulfate (Atropine 0.1 Mg/Ml) 1 mg IVPUSH ASDIRECTED PRN PRN Reason: Hypo-Perfusion Cefazolin Sodium (Ancef) Confirm Administered Dose 2 gm .ROUTE .[facility] ONE Stop: 01/05/19 11:15 Dextrose/Water (Dextrose 50% In Water) 50 ml IVPUSH ASDIRECTED PRN PRN Reason: Hypoglycemia Epinephrine HCl (Epinephrine 1:10,000) 1 mg IVPUSH ASDIRECTED PRN PRN Reason: ACLS Guidelines Famotidine (Pepcid) 40 mg IVPUSH ONARRIVE [facility] Last Admin: 01/05/19 10:39 Dose: 40 mg Fentanyl (Sublimaze) Confirm Administered Dose 100 mcg .ROUTE .[facility] ONE Stop: 01/05/19 10:37 Fentanyl (Sublimaze) 50 - 100 mcg IVPUSH Q5M PRN PRN Reason: Pain Acetaminophen 1,000 mg/ Premix 100 mls @ 400 mls/hr IV ONARRIVE [facility] Last Admin: 01/05/19 10:39 Dose: 400 mls/hr Ropivacaine 49.25 ml/Ketorolac Tromethamine 30 mg/Epinephrine HCl 0.5 mg/ Clonidine HCl 80 mcg/ Sodium Chloride 75 mls @ 50 mls/sec INJECT ASDIRECTED [facility] Tranexamic Acid 2,000 mg/ (Sodium Chloride) 120 mls @ 600 mls/hr IV ASDIRECTED ONE Stop: 01/05/19 08:11 Last Admin: 01/05/19 14:07 Dose: Not Given Cefazolin Sodium/Dextrose 1 gm (/ Premix) 50 mls @ 100 mls/hr IV ONCALL [facility] Acetaminophen 1,000 mg/ Premix 100 mls @ 400 mls/hr IV Q6H [facility] Stop: 01/06/19 05:14 Last Admin: 01/06/19 05:14 Dose: 400 mls/hr Cefazolin Sodium/Dextrose 1 gm (/ Premix) 50 mls @ 100 mls/hr IV Q8H [facility] Stop: 01/06/19 04:29 Last Admin: 01/06/19 03:23 Dose: 100 mls/hr Ketorolac Tromethamine (Toradol) 15 mg IVPUSH ONARRIVE [facility] Last Admin: 01/05/19 10:40 Dose: 15 mg Ketorolac Tromethamine (Toradol) 15 mg IVPUSH Q6H [facility] Stop: 01/06/19 05:00 Last Admin: 01/05/19 13:38 Dose: 15 mg Ketorolac Tromethamine (Toradol) 15 mg IVPUSH Q6H [facility] Stop: 01/06/19 05:00 Last Admin: 01/06/19 00:56 Dose: 15 mg Lidocaine (Xylocaine-Mpf 2%) Confirm Administered Dose 5 ml .ROUTE .[facility] ONE Stop: 01/05/19 10:36 Midazolam HCl (Versed 1 Mg/Ml) Confirm Administered Dose 2 mg .ROUTE .[facility] ONE Stop: 01/05/19 10:37 Naloxone HCl (Narcan) 0.1 mg IVPUSH ASDIRECTED PRN PRN Reason: Respiratory Depression Ondansetron HCl (Zofran) Confirm Administered Dose 4 mg .ROUTE .[facility] ONE Stop: 01/05/19 12:15 Oxycodone HCl (Oxycodone) 5 - 10 mg PO Q4H PRN PRN Reason: Pain Stop: 01/06/19 08:00 Last Admin: 01/06/19 03:29 Dose: 10 mg Propofol (Diprivan 20 Ml) Confirm Administered Dose 400 mg .ROUTE .[facility] ONE Stop: 01/05/19 10:36 Tranexamic Acid (Cyklokapron) Confirm Administered Dose 2,000 mg .ROUTE .ST[facility]- MED ONE Stop: 01/05/19 11:06 - My Orders Last 24 Hours: Active Orders 24 hr Category Date Time Status Aspirin Med 01/06/19 09:00 Active 325 mg PO BID Celecoxib [CeleBREX] Med 01/06/19 09:00 Active 200 mg PO BID Famotidine [Pepcid] Med 01/06/19 09:00 Active 40 mg PO DAILY Polyethylene Glycol 3350 [MiraLAX] Med 01/06/19 09:00 Active 17 gm PO DAILY Venlafaxine [Effexor XR] Med 01/06/19 09:00 Active 150 mg PO DAILY Convert IV to Saline Lock [OM.PC] PRN Oth 01/06/19 13:00 Ordered Medication Orders Al Hydroxide/Mg Hydroxide (Mag-Al Plus) 30 ml PO Q4H PRN PRN Reason: Indigestion Aspirin (Aspirin) 325 mg PO BID [facility] Last Admin: 01/07/19 08:48 Dose: 325 mg Admin: 01/06/19 20:46 Dose: 325 mg Admin: 01/06/19 08:15 Dose: 325 mg Bisacodyl (Dulcolax) 10 mg RECTAL DAILY PRN PRN Reason: Constipation Celecoxib (Celebrex) 200 mg PO BID [facility] Last Admin: 01/07/19 08:50 Dose: 200 mg Admin: 01/06/19 20:46 Dose: 200 mg Admin: 01/06/19 08:15 Dose: 200 mg Diphenhydramine HCl (Benadryl) 25 - 50 mg PO Q6H PRN PRN Reason: Itching Docusate Sodium (Colace) 100 mg PO BID PRN PRN Reason: Constipation Last Admin: 01/06/19 08:15 Dose: 100 mg Famotidine (Pepcid) 40 mg PO DAILY [facility] Last Admin: 01/07/19 08:50 Dose: 40 mg Admin: 01/06/19 08:15 Dose: 40 mg Lactated Ringer's (Ringers, Lactated) 1,000 mls @ 100 mls/hr IV ASDIRECTED [facility] Last Admin: 01/06/19 00:58 Dose: 100 mls/hr Infusion: 01/05/19 20:39 Dose: 100 mls/hr Admin: 01/05/19 10:39 Dose: 100 mls/hr Morphine Sulfate (Morphine) 1 - 3 mg IVPUSH Q3H PRN PRN Reason: Pain Last Admin: 01/06/19 13:59 Dose: 2 mg Admin: 01/06/19 10:27 Dose: 2 mg Ondansetron HCl (Zofran) 4 mg IVPUSH Q6H PRN PRN Reason: Nausea/Vomiting Oxycodone/Acetaminophen (Percocet 325-5 Mg) 1 - 2 tab PO Q4H PRN PRN Reason: Pain Last Admin: 01/07/19 08:48 Dose: 2 tab Admin: 01/07/19 03:18 Dose: 2 tab Admin: 01/06/19 16:55 Dose: 2 tab Admin: 01/06/19 12:21 Dose: 2 tab Admin: 01/06/19 08:16 Dose: 2 tab Cyclosporine 1 Drop 1 each EYEBOTH BID [facility] Last Admin: 01/07/19 08:51 Dose: 1 each Admin: 01/06/19 20:48 Dose: 1 each Admin: 01/06/19 08:18 Dose: 1 each Admin: 01/05/19 20:15 Dose: 1 each Polyethylene Glycol (Miralax) 17 gm PO DAILY [facility] Last Admin: 01/07/19 08:50 Dose: 17 gm Admin: 01/06/19 08:10 Dose: 17 gm Scopolamine (Transderm-Scop) 1.5 mg TRDERM ONARRIVE [facility] Last Admin: 01/05/19 10:41 Dose: 1.5 mg Sodium Chloride (Saline Flush) 10 ml FLUSH ASDIRECTED PRN PRN Reason: Keep Vein Open Sodium Chloride (Saline Flush) 2.5 ml FLUSH ASDIRECTED PRN PRN Reason: Keep Vein Open Venlafaxine HCl (Effexor Xr) 150 mg PO DAILY [facility] Last Admin: 01/07/19 08:50 Dose: 150 mg Admin: 01/06/19 08:15 Dose: 150 mg - Plan Plan (Free Text/Narrative):: Late entry: Patient seen and examined at 1000 on 01/06/19. Still with some pain, slow with PT. Plan to keep an additional day for pain management and further PT. Possible discharge tomorrow. rrk
[2019-01-07] MEDS: Acetaminophen/oxyCODONE 325-5 MG Tab PO PRN ×2 (03:18→08:48)
[2019-01-07] MEDS: Aspirin 325 MG Tab PO SCH (08:48)
[2019-01-07] MEDS: Polyethylene Glycol 3350 Powder 17 GM Packet PO SCH (08:50)
[2019-01-07] MEDS: Venlafaxine 75 MG Cap.ER PO SCH (08:50)
[2019-01-07] MEDS: Famotidine 20 MG Tab PO SCH (08:50)
[2019-01-07] MEDS: Celecoxib 100 MG Cap PO SCH (08:50)
[2019-01-07] MEDS: Cyclosporine 1 DROP EYEBOTH SCH (08:51)
[2019-01-07 09:08] VITALS: BP 128/59; PULSE 78
--- NOTE | 2019-01-07 11:44 | PCM.SURGPN ---
- General Info Date of Service: 01/07/19 (1100) Date of Surgery/Procedure: 01/05/19 (s/p Right TKA) POD#: 2 Post-Op Diagnosis: degenerative joint disease, right knee Functional Status: Reports: Pain Controlled, Tolerating Diet, Ambulating, Urinating - Review of Systems General: Reports: No Symptoms. Denies: Fever Pulmonary: Denies: Shortness of Breath Cardiovascular: Reports: No Symptoms Gastrointestinal: Denies: Nausea, Vomiting Musculoskeletal: Reports: Joint Pain (post-operative knee pain) Neurological: Reports: No Symptoms - Patient Data Vitals - Most Recent: Last Vital Signs Temp 36.3 C 01/07/19 08:00 Pulse 78 01/07/19 08:00 Resp 18 01/07/19 08:00 BP 128/59 L 01/07/19 08:00 Pulse Ox 95 01/07/19 08:00 Weight - Most Recent: 74.843 kg I&O - Last 24 Hours: Intake & Output 01/06/19 01/07/19 01/07/19 22:59 06:59 14:59 Intake Total 560 700 Output Total 400 900 Balance 160 -200 Lab Results Last 24 Hrs: Laboratory Results - last 24 hr 01/07/19 Range/Units 05:30 Hgb 12.0 (12.0-16.0) g/dL Hct 37.1 (36.0-46.0) % Med Orders - Current: Current Medications Al Hydroxide/Mg Hydroxide (Mag-Al Plus) 30 ml PO Q4H PRN PRN Reason: Indigestion Aspirin (Aspirin) 325 mg PO BID [facility] Last Admin: 01/07/19 08:48 Dose: 325 mg Bisacodyl (Dulcolax) 10 mg RECTAL DAILY PRN PRN Reason: Constipation Celecoxib (Celebrex) 200 mg PO BID [facility] Last Admin: 01/07/19 08:50 Dose: 200 mg Diphenhydramine HCl (Benadryl) 25 - 50 mg PO Q6H PRN PRN Reason: Itching Docusate Sodium (Colace) 100 mg PO BID PRN PRN Reason: Constipation Last Admin: 01/06/19 08:15 Dose: 100 mg Famotidine (Pepcid) 40 mg PO DAILY [facility] Last Admin: 01/07/19 08:50 Dose: 40 mg Lactated Ringer's (Ringers, Lactated) 1,000 mls @ 100 mls/hr IV ASDIRECTED [facility] Last Admin: 01/06/19 00:58 Dose: 100 mls/hr Morphine Sulfate (Morphine) 1 - 3 mg IVPUSH Q3H PRN PRN Reason: Pain Last Admin: 01/06/19 13:59 Dose: 2 mg Ondansetron HCl (Zofran) 4 mg IVPUSH Q6H PRN PRN Reason: Nausea/Vomiting Oxycodone/Acetaminophen (Percocet 325-5 Mg) 1 - 2 tab PO Q4H PRN PRN Reason: Pain Last Admin: 01/07/19 08:48 Dose: 2 tab Cyclosporine 1 Drop 1 each EYEBOTH BID [facility] Last Admin: 01/07/19 08:51 Dose: 1 each Polyethylene Glycol (Miralax) 17 gm PO DAILY [facility] Last Admin: 01/07/19 08:50 Dose: 17 gm Scopolamine (Transderm-Scop) 1.5 mg TRDERM ONARRIVE [facility] Last Admin: 01/05/19 10:41 Dose: 1.5 mg Sodium Chloride (Saline Flush) 10 ml FLUSH ASDIRECTED PRN PRN Reason: Keep Vein Open Sodium Chloride (Saline Flush) 2.5 ml FLUSH ASDIRECTED PRN PRN Reason: Keep Vein Open Venlafaxine HCl (Effexor Xr) 150 mg PO DAILY [facility] Last Admin: 01/07/19 08:50 Dose: 150 mg Discontinued Medications Atropine Sulfate (Atropine 0.1 Mg/Ml) 0.5 mg IVPUSH ASDIRECTED PRN PRN Reason: Hypo-perfusion Atropine Sulfate (Atropine 0.1 Mg/Ml) 1 mg IVPUSH ASDIRECTED PRN PRN Reason: Hypo-Perfusion Cefazolin Sodium (Ancef) Confirm Administered Dose 2 gm .ROUTE .STK-MED ONE Stop: 01/05/19 11:15 Dextrose/Water (Dextrose 50% In Water) 50 ml IVPUSH ASDIRECTED PRN PRN Reason: Hypoglycemia Epinephrine HCl (Epinephrine 1:10,000) 1 mg IVPUSH ASDIRECTED PRN PRN Reason: ACLS Guidelines Famotidine (Pepcid) 40 mg IVPUSH ONARRIVE [facility] Last Admin: 01/05/19 10:39 Dose: 40 mg Fentanyl (Sublimaze) Confirm Administered Dose 100 mcg .ROUTE .STK-MED ONE Stop: 01/05/19 10:37 Fentanyl (Sublimaze) 50 - 100 mcg IVPUSH Q5M PRN PRN Reason: Pain Acetaminophen 1,000 mg/ Premix 100 mls @ 400 mls/hr IV ONARRIVE [facility] Last Admin: 01/05/19 10:39 Dose: 400 mls/hr Ropivacaine 49.25 ml/Ketorolac Tromethamine 30 mg/Epinephrine HCl 0.5 mg/ Clonidine HCl 80 mcg/ Sodium Chloride 75 mls @ 50 mls/sec INJECT ASDIRECTED [facility] Tranexamic Acid 2,000 mg/ (Sodium Chloride) 120 mls @ 600 mls/hr IV ASDIRECTED [facility] Stop: 01/05/19 08:11 Last Admin: 01/05/19 14:07 Dose: Not Given Cefazolin Sodium/Dextrose 1 gm (/ Premix) 50 mls @ 100 mls/hr IV ONCALL [facility] Acetaminophen 1,000 mg/ Premix 100 mls @ 400 mls/hr IV Q6H [facility] Stop: 01/06/19 05:14 Last Admin: 01/06/19 05:14 Dose: 400 mls/hr Cefazolin Sodium/Dextrose 1 gm (/ Premix) 50 mls @ 100 mls/hr IV Q8H [facility] Stop: 01/06/19 04:29 Last Admin: 01/06/19 03:23 Dose: 100 mls/hr Ketorolac Tromethamine (Toradol) 15 mg IVPUSH ONARRIVE [facility] Last Admin: 01/05/19 10:40 Dose: 15 mg Ketorolac Tromethamine (Toradol) 15 mg IVPUSH Q6H [facility] Stop: 01/06/19 05:00 Last Admin: 01/05/19 13:38 Dose: 15 mg Ketorolac Tromethamine (Toradol) 15 mg IVPUSH Q6H [facility] Stop: 01/06/19 05:00 Last Admin: 01/06/19 00:56 Dose: 15 mg Lidocaine (Xylocaine-Mpf 2%) Confirm Administered Dose 5 ml .ROUTE .STK-MED ONE Stop: 01/05/19 10:36 Midazolam HCl (Versed 1 Mg/Ml) Confirm Administered Dose 2 mg .ROUTE .STK-MED ONE Stop: 01/05/19 10:37 Naloxone HCl (Narcan) 0.1 mg IVPUSH ASDIRECTED PRN PRN Reason: Respiratory Depression Ondansetron HCl (Zofran) Confirm Administered Dose 4 mg .ROUTE .[place]-MED ONE Stop: 01/05/19 12:15 Oxycodone HCl (Oxycodone) 5 - 10 mg PO Q4H PRN PRN Reason: Pain Stop: 01/06/19 08:00 Last Admin: 01/06/19 03:29 Dose: 10 mg Propofol (Diprivan 20 Ml) Confirm Administered Dose 400 mg .ROUTE .STK-MED ONE Stop: 01/05/19 10:36 Tranexamic Acid (Cyklokapron) Confirm Administered Dose 2,000 mg .ROUTE .[place]- [employer] ONE Stop: 01/05/19 11:06 - Exam Wound/Incisions: Other (AquaCell dressing intact) Quality Assessment: DVT Prophylaxis (ASA BID, compression stockings, SCDs bilaterally, & ambulation) General: Alert, Oriented, Cooperative, No Acute Distress HEENT: Pupils Equal Lungs: Normal Respiratory Effort Cardiovascular: Regular Rate Extremities: No Pedal Edema, Other (at/ehl/gastroc 5/5 Sensation grossly intact to LE. PP2+) Skin: Warm Neurological: Normal Speech, Normal Tone Psy/Mental Status: Alert, Normal Affect, Normal Mood - Problem List Review Problem List Initiated/Reviewed/Updated: Yes - My Orders Last 24 Hours: Active Orders 24 hr Category Date Time Status Convert IV to Saline Lock [OM.PC] PRN Oth 01/06/19 13:00 Ordered Medication Orders Al Hydroxide/Mg Hydroxide (Mag-Al Plus) 30 ml PO Q4H PRN PRN Reason: Indigestion Aspirin (Aspirin) 325 mg PO BID [facility] Last Admin: 01/07/19 08:48 Dose: 325 mg Admin: 01/06/19 20:46 Dose: 325 mg Admin: 01/06/19 08:15 Dose: 325 mg Bisacodyl (Dulcolax) 10 mg RECTAL DAILY PRN PRN Reason: Constipation Celecoxib (Celebrex) 200 mg PO BID [facility] Last Admin: 01/07/19 08:50 Dose: 200 mg Admin: 01/06/19 20:46 Dose: 200 mg Admin: 01/06/19 08:15 Dose: 200 mg Diphenhydramine HCl (Benadryl) 25 - 50 mg PO Q6H PRN PRN Reason: Itching Docusate Sodium (Colace) 100 mg PO BID PRN PRN Reason: Constipation Last Admin: 01/06/19 08:15 Dose: 100 mg Famotidine (Pepcid) 40 mg PO DAILY [facility] Last Admin: 01/07/19 08:50 Dose: 40 mg Admin: 01/06/19 08:15 Dose: 40 mg Lactated Ringer's (Ringers, Lactated) 1,000 mls @ 100 mls/hr IV ASDIRECTED [facility] Last Admin: 01/06/19 00:58 Dose: 100 mls/hr Infusion: 01/05/19 20:39 Dose: 100 mls/hr Admin: 01/05/19 10:39 Dose: 100 mls/hr Morphine Sulfate (Morphine) 1 - 3 mg IVPUSH Q3H PRN PRN Reason: Pain Last Admin: 01/06/19 13:59 Dose: 2 mg Admin: 01/06/19 10:27 Dose: 2 mg Ondansetron HCl (Zofran) 4 mg IVPUSH Q6H PRN PRN Reason: Nausea/Vomiting Oxycodone/Acetaminophen (Percocet 325-5 Mg) 1 - 2 tab PO Q4H PRN PRN Reason: Pain Last Admin: 01/07/19 08:48 Dose: 2 tab Admin: 01/07/19 03:18 Dose: 2 tab Admin: 01/06/19 16:55 Dose: 2 tab Admin: 01/06/19 12:21 Dose: 2 tab Admin: 01/06/19 08:16 Dose: 2 tab Cyclosporine 1 Drop 1 each EYEBOTH BID [facility] Last Admin: 01/07/19 08:51 Dose: 1 each Admin: 01/06/19 20:48 Dose: 1 each Admin: 01/06/19 08:18 Dose: 1 each Admin: 01/05/19 20:15 Dose: 1 each Polyethylene Glycol (Miralax) 17 gm PO DAILY [facility] Last Admin: 01/07/19 08:50 Dose: 17 gm Admin: 01/06/19 08:10 Dose: 17 gm Scopolamine (Transderm-Scop) 1.5 mg TRDERM ONARRIVE [facility] Last Admin: 01/05/19 10:41 Dose: 1.5 mg Sodium Chloride (Saline Flush) 10 ml FLUSH ASDIRECTED PRN PRN Reason: Keep Vein Open Sodium Chloride (Saline Flush) 2.5 ml FLUSH ASDIRECTED PRN PRN Reason: Keep Vein Open Venlafaxine HCl (Effexor Xr) 150 mg PO DAILY [facility] Last Admin: 01/07/19 08:50 Dose: 150 mg Admin: 01/06/19 08:15 Dose: 150 mg - Assessment Assessment (Free Text/Narrative):: s/p Right TKA - Plan Plan (Free Text/Narrative):: Patricia is feeling better today. Pain controlled with Percocet after necessitating IV morphine yesterday AM and afternoon. VSS/afebrile. Hg stable at 12.0 Ambulating well with staff & PT with use of four wheeled walker. She feels ready for discharge today.
--- NOTE | 2019-01-07 11:49 | PCM.SN ---
- Free Text/Narrative Note: Patient seen and examined. Agree with Nadine note from today. Patient feels much better today. Will plan to discharge home. Continue outpatient PT. ASA for dvt prophylaxis. Patient agrees with plan.
--- NOTE | 2019-01-07 12:49 | PCM.DCSUM1 ---
Discharge Summary - Hospital Course Free Text/Narrative:: DOCUMENT #[id number] - Discharge Data Discharge Date: 01/07/19 Discharge Disposition: Home, Self-Care 01 Condition: Good - Patient Summary/Data Operative Procedure(s) Performed: R TKA Consults: Consultations 01/05/19 12:56 PT Evaluation and Treatment [CONS] Routine - Patient Instructions Other/Special Instructions: Refer to Dr. Magdalene Chavarria's 'Post-operative patient instructions for TOTAL KNEE ARTHROPLASTY' orange sheet - Discharge Plan Prescriptions/Med Rec: Acetaminophen/oxyCODONE [Percocet 325-5 MG] 1 - 2 tab PO Q4H PRN #30 tablet PRN Reason: Pain Aspirin 325 mg PO BID #60 tablet Celecoxib [CeleBREX] 200 mg PO DAILY #30 cap Docusate Sodium [Colace] 100 mg PO BID PRN #60 cap PRN Reason: Constipation Polyethylene Glycol 3350 [MiraLAX] 17 gm PO DAILY #600 gm Home Medications: Home Meds Simvastatin [Zocor] 40 mg PO BEDTIME 11/27/16 [History] Venlafaxine HCl [Venlafaxine HCl ER] 150 mg PO DAILY 11/27/16 [History] cycloSPORINE [Restasis] 1 drop EYEBOTH BID 11/27/16 [History] Acetaminophen/oxyCODONE [Percocet 325-5 MG] 1 - 2 tab PO Q4H PRN #30 tablet 10/19 [Rx] Aspirin 325 mg PO BID #60 tablet 01/05/19 [Rx] Celecoxib [CeleBREX] 200 mg PO DAILY #30 cap 01/05/19 [Rx] Docusate Sodium [Colace] 100 mg PO BID PRN #60 cap 01/05/19 [Rx] Polyethylene Glycol 3350 [MiraLAX] 17 gm PO DAILY #600 gm 01/05/19 [Rx] Patient Handouts: Docusate Sodium; Senna tablets or capsules, Acetaminophen; Oxycodone tablets, Celecoxib capsules, Aspirin, ASA oral tablets, Polyethylene Glycol powder Referrals: Magdalene Chavarria MD [Physician] - 02/17/19 10:30 am (6-week follow-up ) Lazara Edwards PA [Physician Field Marketing Representative] - 01/16/19 10:40 am (2-week follow-up) - Discharge Summary/Plan Comment DC Time >30 min.: No - Patient Data Vitals - Most Recent: Last Vital Signs Temp 36.3 C 01/07/19 08:00 Pulse 78 01/07/19 08:00 Resp 18 01/07/19 08:00 BP 128/59 L 01/07/19 08:00 Pulse Ox 95 01/07/19 08:00 Weight - Most Recent: 74.843 kg I&O - Last 24 hours: Intake & Output 01/06/19 01/07/19 01/07/19 22:59 06:59 14:59 Intake Total 560 700 Output Total 400 900 Balance 160 -200 Lab Results - Last 24 hrs: Laboratory Results - last 24 hr 01/07/19 Range/Units 05:30 Hgb 12.0 (12.0-16.0) g/dL Hct 37.1 (36.0-46.0) % Med Orders - Current: Current Medications Al Hydroxide/Mg Hydroxide (Mag-Al Plus) 30 ml PO Q4H PRN PRN Reason: Indigestion Aspirin (Aspirin) 325 mg PO BID [facility] Last Admin: 01/07/19 08:48 Dose: 325 mg Bisacodyl (Dulcolax) 10 mg RECTAL DAILY PRN PRN Reason: Constipation Celecoxib (Celebrex) 200 mg PO BID [facility] Last Admin: 01/07/19 08:50 Dose: 200 mg Diphenhydramine HCl (Benadryl) 25 - 50 mg PO Q6H PRN PRN Reason: Itching Docusate Sodium (Colace) 100 mg PO BID PRN PRN Reason: Constipation Last Admin: 01/06/19 08:15 Dose: 100 mg Famotidine (Pepcid) 40 mg PO DAILY [facility] Last Admin: 01/07/19 08:50 Dose: 40 mg Lactated Ringer's (Ringers, Lactated) 1,000 mls @ 100 mls/hr IV ASDIRECTED [facility] Last Admin: 01/06/19 00:58 Dose: 100 mls/hr Morphine Sulfate (Morphine) 1 - 3 mg IVPUSH Q3H PRN PRN Reason: Pain Last Admin: 01/06/19 13:59 Dose: 2 mg Ondansetron HCl (Zofran) 4 mg IVPUSH Q6H PRN PRN Reason: Nausea/Vomiting Oxycodone/Acetaminophen (Percocet 325-5 Mg) 1 - 2 tab PO Q4H PRN PRN Reason: Pain Last Admin: 01/07/19 08:48 Dose: 2 tab Cyclosporine 1 Drop 1 each EYEBOTH BID [facility] Last Admin: 01/07/19 08:51 Dose: 1 each Polyethylene Glycol (Miralax) 17 gm PO DAILY [facility] Last Admin: 01/07/19 08:50 Dose: 17 gm Scopolamine (Transderm-Scop) 1.5 mg TRDERM ONARRIVE [facility] Last Admin: 01/05/19 10:41 Dose: 1.5 mg Sodium Chloride (Saline Flush) 10 ml FLUSH ASDIRECTED PRN PRN Reason: Keep Vein Open Sodium Chloride (Saline Flush) 2.5 ml FLUSH ASDIRECTED PRN PRN Reason: Keep Vein Open Venlafaxine HCl (Effexor Xr) 150 mg PO DAILY [facility] Last Admin: 01/07/19 08:50 Dose: 150 mg Discontinued Medications Atropine Sulfate (Atropine 0.1 Mg/Ml) 0.5 mg IVPUSH ASDIRECTED PRN PRN Reason: Hypo-perfusion Atropine Sulfate (Atropine 0.1 Mg/Ml) 1 mg IVPUSH ASDIRECTED PRN PRN Reason: Hypo-Perfusion Cefazolin Sodium (Ancef) Confirm Administered Dose 2 gm .ROUTE .STK-MED ONE Stop: 01/05/19 11:15 Dextrose/Water (Dextrose 50% In Water) 50 ml IVPUSH ASDIRECTED PRN PRN Reason: Hypoglycemia Epinephrine HCl (Epinephrine 1:10,000) 1 mg IVPUSH ASDIRECTED PRN PRN Reason: ACLS Guidelines Famotidine (Pepcid) 40 mg IVPUSH ONARRIVE [facility] Last Admin: 01/05/19 10:39 Dose: 40 mg Fentanyl (Sublimaze) Confirm Administered Dose 100 mcg .ROUTE .STK-MED ONE Stop: 01/05/19 10:37 Fentanyl (Sublimaze) 50 - 100 mcg IVPUSH Q5M PRN PRN Reason: Pain Acetaminophen 1,000 mg/ Premix 100 mls @ 400 mls/hr IV ONARRIVE [facility] Last Admin: 01/05/19 10:39 Dose: 400 mls/hr Ropivacaine 49.25 ml/Ketorolac Tromethamine 30 mg/Epinephrine HCl 0.5 mg/ Clonidine HCl 80 mcg/ Sodium Chloride 75 mls @ 50 mls/sec INJECT ASDIRECTED [facility] Tranexamic Acid 2,000 mg/ (Sodium Chloride) 120 mls @ 600 mls/hr IV ASDIRECTED ONE Stop: 01/05/19 08:11 Last Admin: 01/05/19 14:07 Dose: Not Given Cefazolin Sodium/Dextrose 1 gm (/ Premix) 50 mls @ 100 mls/hr IV ONCALL [facility] Acetaminophen 1,000 mg/ Premix 100 mls @ 400 mls/hr IV Q6H [facility] Stop: 01/06/19 05:14 Last Admin: 01/06/19 05:14 Dose: 400 mls/hr Cefazolin Sodium/Dextrose 1 gm (/ Premix) 50 mls @ 100 mls/hr IV Q8H [facility] Stop: 01/06/19 04:29 Last Admin: 01/06/19 03:23 Dose: 100 mls/hr Ketorolac Tromethamine (Toradol) 15 mg IVPUSH ONARRIVE [facility] Last Admin: 01/05/19 10:40 Dose: 15 mg Ketorolac Tromethamine (Toradol) 15 mg IVPUSH Q6H [facility] Stop: 01/06/19 05:00 Last Admin: 01/05/19 13:38 Dose: 15 mg Ketorolac Tromethamine (Toradol) 15 mg IVPUSH Q6H [facility] Stop: 01/06/19 05:00 Last Admin: 01/06/19 00:56 Dose: 15 mg Lidocaine (Xylocaine-Mpf 2%) Confirm Administered Dose 5 ml .ROUTE .STK-MED ONE Stop: 01/05/19 10:36 Midazolam HCl (Versed 1 Mg/Ml) Confirm Administered Dose 2 mg .ROUTE .STK-MED ONE Stop: 01/05/19 10:37 Naloxone HCl (Narcan) 0.1 mg IVPUSH ASDIRECTED PRN PRN Reason: Respiratory Depression Ondansetron HCl (Zofran) Confirm Administered Dose 4 mg .ROUTE .STK-MED ONE Stop: 01/05/19 12:15 Oxycodone HCl (Oxycodone) 5 - 10 mg PO Q4H PRN PRN Reason: Pain Stop: 01/06/19 08:00 Last Admin: 01/06/19 03:29 Dose: 10 mg Propofol (Diprivan 20 Ml) Confirm Administered Dose 400 mg .ROUTE .STK-MED ONE Stop: 01/05/19 10:36 Tranexamic Acid (Cyklokapron) Confirm Administered Dose 2,000 mg .ROUTE .STK- MED ONE Stop: 01/05/19 11:06
--- NOTE | 2019-01-07 18:47 | DISCH ---
DATE OF DISCHARGE: 01/07/2019 PRIMARY CARE PHYSICIAN: DERICK HARVEY ADMITTING DIAGNOSIS: Degenerative joint disease, right knee, tricompartmental. OTHER MEDICAL DIAGNOSES: 1. Anxiety/depression. 2. Hypercholesterolemia. DISCHARGE MEDICAL DIAGNOSES: 1. Degenerative joint disease, right knee, tricompartmental. 2. Posthemorrhagic anemia. 3. Acute postprocedural pain. 4. Anxiety/depression. 5. Hypercholesterolemia. HISTORY: This is a 68-year-old female with progressive right knee pain whom failed conservative treatment, underwent right total knee arthroplasty using patient specific instrumentation on January 05, [address] Magdalene Chavarria. Procedure performed under spinal anesthesia with sedation. EBL 50 mL. Tourniquet time 39 minutes. No known surgical complications. Transferred to recovery, then to [facility] for postop care. HOSPITAL COURSE: Postoperatively, the patient did well with the exception of pain control. Tolerating oral food, fluids, and narcotics without nausea and vomiting. Antibiotic coverage included Ancef every 8 hours for a total of 24 hours. Pain was treated with combination of oral oxycodone and IV morphine. Due to increased pain needing IV morphine, she did not feel ready for discharge postop day 1. Physical therapy was initiated in the hospital. She was ambulating well with staff, physical therapist, and four-wheeled walker as assistive device. Vital signs stable, afebrile. Hemoglobin stable at 12.2, then 12.0. Surgical incisions clean, dry, and intact. This was removed postop day 1. Incision well approximated with taty with no erythema and minimal drainage. Large Aquacel dressing was applied. By postop day 2, she felt ready to be discharged home. DISCHARGE MEDICATIONS: 1. Percocet 5/325 mg 1 to 2 tabs every 4 hours p.r.n. 2. Aspirin 325 mg b.i.d. 3. Celebrex 200 mg daily. 4. Colace 100 mg b.i.d. p.r.n. 5. MiraLAX 17 g daily. 6. Simvastatin 40 mg daily. 7. Venlafaxine 150 mg daily. The patient was given Dr. Magdalene Chavarria's postoperative patient instructions for total knee arthroplasty. Followup appointment was scheduled in 10 days for staple removal, then at [address] Chavarria. She was advised to contact Orthopedic Clinic with acute questions or concerns. Physical therapy is scheduled to begin later this week at the [facility]. MICHAEL / PHYLLIS /[id number] MTDD
== END 2019-01-07 12:30 | disposition home or self-care (01) | DRG 470 ==
LOC: MW.MS 09:59 → EDSTATUS 12:00
PROVIDERS: ADMIT Orthopaedic Surgery; ATTEND Orthopaedic Surgery
PROC: 0SRC0J9 Replacement of Right Knee Joint with Synthetic Substitute, Cemented, Open Approach (ICD-10-PCS; principal; 2019-01-05)
DX: M17.11 Unilateral primary osteoarthritis, right knee (principal); D62 Acute posthemorrhagic anemia; F41.9 Anxiety disorder, unspecified; F32.9 Major depressive disorder, single episode, unspecified; E78.00 Pure hypercholesterolemia, unspecified; G89.18 Other acute postprocedural pain; Z79.899 Other long term (current) drug therapy
CPT/HCPCS: 01402; 36415; 73560-26-RT; 73560-RT; 85014; 85018; 86850; 86900; 86901; 88305; 88311; 97110-GP; 97116-GP; 97161-GP; 97530-GP; A9270-GY; C1713; C1776; J0131; J0171; J0690; J0735; J1885; J2001; J2250; J2270; J2405; J2704; J2795; J3010; J3490; J7050; J7120

== ENCOUNTER 2021-10-26 17:38 | Emergency (ER) | payer MEDICARE ==
[2021-10-26 18:15] VITALS: BP 125/62; PULSE 75
== END 2021-10-26 18:12 | disposition home or self-care (01) ==
LOC: MW.ED 17:38
DX: S90.851A Superficial foreign body, right foot, initial encounter (principal); E78.00 Pure hypercholesterolemia, unspecified; Z91.048 Other nonmedicinal substance allergy status; Z79.899 Other long term (current) drug therapy; Z79.82 Long term (current) use of aspirin; W46.1XXA Contact with contaminated hypodermic needle, initial encounter
CPT/HCPCS: 99282; 99283

== ENCOUNTER 2021-11-21 07:50 | Day surgery (SDC) | payer MEDICARE, OTHER ==
[2021-11-21] MEDS ORDERED: Metoclopramide 10 MG/2 ML SDV IVPUSH PRN (08:27)
[2021-11-21] MEDS ORDERED: HYDROmorphone 1 MG/ML Syringe IVPUSH PRN (08:27)
[2021-11-21] MEDS ORDERED: Naloxone 0.4 MG/ML SDV IVPUSH PRN (08:27)
[2021-11-21] MEDS ORDERED: Ondansetron 4 MG/2 ML SDV IVPUSH PRN (08:27)
[2021-11-21] MEDS ORDERED: fentaNYL 50 MCG/ML SDV IVPUSH PRN (08:27)
[2021-11-21] MEDS ORDERED: Albuterol 0.083% 2.5 MG/3 ML Neb Soln NEB PRN (08:27)
[2021-11-21] MEDS ORDERED: ceFAZolin 2 GM in Premix Bag 1 BAG IV ONE (09:00)
[2021-11-21] MEDS ORDERED: Lactated Ringers 1,000 ML IV SCH (09:00)
[2021-11-21] MEDS ORDERED: Bupivacaine 0.5% 30 ML SDV ONE (10:10)
[2021-11-21] MEDS ORDERED: Lidocaine 1% 20 ML MDV ONE (10:10)
[2021-11-21] MEDS ORDERED: fentaNYL 250 MCG/5 ML SDV ONE (10:13)
[2021-11-21] MEDS ORDERED: Propofol 200 MG/20 ML SDV ONE (10:13)
[2021-11-21] MEDS ORDERED: Ondansetron 4 MG/2 ML SDV ONE (11:15)
[2021-11-21 12:38] VITALS: BP 137/63; PULSE 95
== END 2021-11-21 12:57 | disposition home or self-care (01) ==
LOC: MW.SDS 07:50
PROVIDERS: ATTEND Podiatrist Foot & Ankle Surgery
DX: S90.851A Superficial foreign body, right foot, initial encounter (principal); E11.9 Type 2 diabetes mellitus without complications; E78.5 Hyperlipidemia, unspecified; F32.A Depression, unspecified; Z79.84 Long term (current) use of oral hypoglycemic drugs; Z79.899 Other long term (current) drug therapy; Z91.048 Other nonmedicinal substance allergy status; Z98.890 Other specified postprocedural states
CPT/HCPCS: 28190; 76000; 82947; 88300; J0131; J0690; J2405; J2704; J3010; J3490; J7120; 01470; 99100

== ENCOUNTER 2024-01-26 08:50 | Emergency (ER) | payer MEDICARE, OTHER ==
[2024-01-26] MEDS: Proparacaine 0.5% Ophth Soln 15 ML Bottle EYEBOTH STA (09:18)
[2024-01-26 10:08] VITALS: BP 126/46; PULSE 67
== END 2024-01-26 10:08 | disposition home or self-care (01) ==
LOC: MW.ED 08:50
DX: H10.213 Acute toxic conjunctivitis, bilateral (principal); E78.00 Pure hypercholesterolemia, unspecified; E11.9 Type 2 diabetes mellitus without complications; Z75.8 Other problems related to medical facilities and other health care; Z91.048 Other nonmedicinal substance allergy status; Z79.84 Long term (current) use of oral hypoglycemic drugs; Z79.899 Other long term (current) drug therapy
CPT/HCPCS: 99283; J3490

== ENCOUNTER 2024-10-13 07:47 | Day surgery (SDC) | payer MEDICARE, OTHER ==
[~2024-10-13 07:47] MED LIST changes: -Acetaminophen 1,000 MG in Premix Bag 1 BAG IV SCH; -Famotidine 20 MG/2 ML SDV IVPUSH SCH; -Ketorolac 15 MG/ML SDV IVPUSH SCH; +Lidocaine 2% 5 ML SDV ONE; -Ropivacaine 49.25 ML, Ketorolac 30 MG, EPINEPHrine 0.5 MG, cloNIDine 80 MCG in Sodium C... INJECT SCH; -Scopolamine 1.5 MG Transdermal Patch TRDERM SCH; +Sodium Chloride 0.9% 10 ML Syringe FLUSH PRN; +Sodium Chloride 0.9% 2.5 ML Syringe FLUSH PRN; +Sodium Chloride 0.9% 20 ML SDV IV PRN; -Tranexamic Acid 2,000 MG in Sodium Chloride 0.9% 100 ML IV ONE; -ceFAZolin 1 GM in Premix Bag 1 BAG IV SCH; +propofoL 500 MG/50 ML 50 ML ONE
[2024-10-13] MEDS: Lactated Ringers 1,000 ML IV SCH (08:33)
[2024-10-13] MEDS ORDERED: Ketorolac 30 MG/ML SDV ONE (09:51)
[2024-10-13] MEDS ORDERED: Glycopyrrolate 0.2 MG/ML SDV ONE (09:51)
[2024-10-13 10:51] VITALS: BP 129/54; PULSE 64
== END 2024-10-13 10:55 | disposition home or self-care (01) ==
LOC: MW.SDS 07:47
PROVIDERS: ATTEND Surgery
DX: Z12.11 Encounter for screening for malignant neoplasm of colon (principal); E78.00 Pure hypercholesterolemia, unspecified; E11.9 Type 2 diabetes mellitus without complications; Z87.891 Personal history of nicotine dependence; Z79.84 Long term (current) use of oral hypoglycemic drugs; Z79.899 Other long term (current) drug therapy
CPT/HCPCS: G0121; J1596; J1885; J2003; J2704; J7120; 00812; 99100